=== PATIENT | male | born 1950 | race Caucasian/White ===

== ENCOUNTER → 2018-05-29 11:49 | Outpatient (BNVA) | payer MEDICARE, SELFPAY | PROVIDERS: Visit Provider Internal Medicine Interventional Cardiology | DX: I48.2 Chronic atrial fibrillation (principal); R06.02 Shortness of breath; R60.0 Localized edema; I73.9 Peripheral vascular disease, unspecified; I10 Essential (primary) hypertension | CPT/HCPCS: 99214 ==

== ENCOUNTER 2018-06-06 00:36 | Outpatient (CLI) | payer MEDICARE, SELFPAY ==
--- NOTE | 2018-06-06 10:35 | MERGE_ITS ---
*[facility]* *[facility]* [address] [place] [address] Date of study: 06/06/2018 Transthoracic Echocardiography M-mode, complete 2D, complete spectral Doppler, and color Doppler *STUDY CONCLUSIONS* Impressions: The patient was in atrial fibrillation throughout study. This rhythm can interfere with accurate global and segmental wall motion analysis. Summary: 1. Left ventricle: The cavity size was mildly dilated. Wall thickness was normal. Systolic function was at the lower limits of normal. The estimated ejection fraction was 50-55%. Wall motion was normal; there were no regional wall motion abnormalities. 2. Mitral valve: There was mild to moderate regurgitation. 3. Left atrium: The atrium was mildly dilated. 4. Right ventricle: The cavity size was normal. Wall thickness was normal. Systolic function was normal. 5. Right atrium: The atrium was dilated. 6. Pulmonary arteries: Pulmonary systolic pressure was increased, in the range of 30mm Hg to 40mm Hg. *PATIENT PRESENTATION* Height: 190.5cm ((75in) ) S/D Pressure: 134 / 88 Weight: 145.2kg ((319.3lb) ) BSA: 2.83m^2 Test start time: 10:40 AM. Test stop time: 11:40 AM. ORDERING Ruddy Delacruz MD REFERRING Ruddy Delacruz MD PERFORMING Unknown PERFORMING [facility] QUALITY PROJECT MANAGER RT Zenaida (R)(CT), KITTY *PROCEDURE DATA* Procedure information: The patient was identified by two identifiers. This study was interpreted by [facility]. Pertinent images and digital data are archived for permanent storage and are available for subsequent review. Comparison was made to the study of 12/15/2015. Study status: Routine. Transthoracic echocardiography. M-mode, complete 2D, complete spectral Doppler, and color Doppler. A Transthoracic Echocardiogram was performed. Scanning was performed from the parasternal, apical, subcostal, and suprasternal notch acoustic windows. Images were obtained using an [id number] cardiac ultrasound machine. Image quality was fair. Study completion: The patient tolerated the procedure well. There were no complications. History: PMH: Shortness of breath. *CARDIAC ANATOMY* Left ventricle: The cavity size was mildly dilated. Wall thickness was normal. Systolic function was at the lower limits of normal. The estimated ejection fraction was 50-55%. Wall motion was normal; there were no regional wall motion abnormalities. The study was not technically sufficient to allow evaluation of LV diastolic dysfunction due to atrial fibrillation. Aortic valve: Probably trileaflet; normal thickness leaflets. Mobility was not restricted. Doppler: Transvalvular velocity was within the normal range. There was no stenosis. There was no significant regurgitation. VTI ratio of LVOT to aortic valve: 0.69. Valve area (VTI): 2.5cm^2. Indexed valve area (VTI): 0.9cm^2/m^2. Peak velocity ratio of LVOT to aortic valve: 0.71. Valve area (Vmax): 2.6cm^2. Indexed valve area (Vmax): 0.9cm^2/m^2. Mean velocity ratio of LVOT to aortic valve: 0.68. Valve area (Vmean): 2.5cm^2. Indexed valve area (Vmean): 0.9cm^2/m^2. Mean gradient (S): 3.1mm Hg. Peak gradient (S): 4.8mm Hg. Aorta: Aortic root: The aortic root was normal in size. Ascending aorta: The ascending aorta was normal in size. Mitral valve: Structurally normal valve. Mobility was not restricted. Doppler: Transvalvular velocity was within the normal range. There was no evidence for stenosis. There was mild to moderate regurgitation. Valve area by pressure half-time: 7.2cm^2. Indexed valve area by pressure half-time: 2.5cm^2/m^2. Peak gradient (D): 4.5mm Hg. Left atrium: The atrium was mildly dilated. Right ventricle: The cavity size was normal. Wall thickness was normal. Systolic function was normal. Pulmonic valve: The pulmonary valve appears to be grossly normal. Doppler: Transvalvular velocity was within the normal range. There was no evidence for stenosis. There was no significant regurgitation. Tricuspid valve: Structurally normal valve. Doppler: Transvalvular velocity was within the normal range. There was no evidence for stenosis. There was mild regurgitation. Pulmonary artery: Pulmonary systolic pressure was increased, in the range of 30mm Hg to 40mm Hg. Right atrium: The atrium was dilated. Pericardium: There was no pericardial effusion. Systemic veins: Inferior vena cava: Well visualized. The vessel was patent and normal in size. The respirophasic diameter changes were in the normal range (greater than or equal to 50%). Baseline ECG: Atrial fibrillation. Measurements Left ventricle Value Reference LV ID, ED, PLAX 5.9 cm 3.5 - 6.0 LV ID, ES, PLAX (H) 4.7 cm 2.1 - 4.0 LV end-diastolic volume, 1-p A2C 97 ml LV ejection fraction, 1-p A2C 50 % LV end-diastolic volume, 1-p A4C 75 ml LV ejection fraction, 1-p A4C 46 % LV e', lateral 0.11 m/sec LV E/e', lateral 10 LV e', medial 0.067 m/sec LV E/e', medial 16 LV e', average 0.089 m/sec LV E/e', average 12 LVOT Value Reference LVOT ID, A-P 2.2 cm LVOT area 3.7 cm^2 LVOT peak velocity, S 0.78 m/sec LVOT mean velocity, S 0.58 m/sec LVOT VTI, S 13.1 cm LVOT peak gradient, S 2.4 mm Hg LVOT mean gradient, S 1.5 mm Hg Stroke volume (SV), LVOT DP 48 ml Stroke index (SV/bsa), LVOT DP 17 ml/m^2 Aortic valve Value Reference Aortic valve peak velocity, S 1.1 m/sec Aortic valve mean velocity, S 0.84 m/sec Aortic valve VTI, S 19.0 cm Aortic mean gradient, S 3.1 mm Hg Aortic peak gradient, S 4.8 mm Hg VTI ratio, LVOT/AV 0.69 Aortic valve area, VTI 2.5 cm^2 Velocity ratio, peak, LVOT/AV 0.71 Aortic valve area, peak velocity 2.6 cm^2 Velocity ratio, mean, LVOT/AV 0.68 Aortic valve area, mean velocity 2.5 cm^2 Aortic valve area/bsa, mean velocity 0.9 cm^2/m^2 Aorta Value Reference Aortic root ID, ED 3.6 cm Ascending aorta ID, A-P, S 2.8 cm Left atrium Value Reference LA ID, A-P, ES 5.7 cm LA ID/bsa, A-P 2.0 cm/m^2 <=2.2 LA area, ES, A4C (H) 30.6 cm^2 8.8 - 23.4 LA area, ES, A2C 29 cm^2 LA volume/bsa, ES, 1-p A4C 37 ml/m^2 LA volume, ES, 2-p 96 ml LA volume/bsa, ES, 2-p 34 ml/m^2 LA/aortic root ratio 1.58 Mitral valve Value Reference Mitral E-wave peak velocity 1.06 m/sec Mitral deceleration time (L) 106 ms 150 - 230 Mitral pressure half-time 31 ms Mitral peak gradient, D 4.5 mm Hg Mitral valve area, PHT, DP 7.2 cm^2 Tricuspid valve Value Reference Tricuspid regurg peak velocity 3 m/sec Tricuspid peak RV-RA gradient 35.2 mm Hg Right atrium Value Reference RA area, ES, A4C (H) 30.3 cm^2 8.3 - 19.5 Legend: (L) and (H) vickie values outside specified reference range. I have personally reviewed the images and have reviewed and edited the reported findings. Electronically signed by Vimal Wood 06/06/2018 17:41
--- NOTE | 2018-06-06 11:52 | DI.RAD_ITS ---
SYMPTOM/DIAGNOSIS: SOB, R06.02 PA AND LATERAL CHEST: Comparison is made with 12/18/13. The heart is again noted to be enlarged. There is apparent increased density posteriorly in the right lower lobe medially which could represent atelectasis versus consolidation. No effusions are seen. The left lung appears clear. Prominent degenerative changes are again noted in the spine. IMPRESSION: Right lower lobe atelectasis versus consolidation.
[2018-06-06 12:40] LABS: HCT 49.4 % (40.0-50.0); HGB 16.3 g/dL (13.5-17.5); Mean Corpuscular Hemoglobin 31.2 pg (27.0-33.0); Mean Corpuscular Volume 94.6 fL (80-95); Mean Platelet Volume 10.2 fL (8.0-11.0); Platelet Count 228 x1000/uL (130-400); RBC 5.22 m/cumm (4.50-6.00); RBC Distribution Width 14.1 % (11.8-14.1); White Blood Cell Count 7.47 k/cumm (4.4-10.8)
[2018-06-06 14:11] LABS: Anion Gap 7.6 mmol/L (3-11); BUN 14 mg/dL (7-18); CO2 30.4 mmol/L (21.0-32.0); CREATININE 0.99 mg/dL (0.70-1.30); Chloride 102 mmol/L (98-107); NT-proBNP 439 pg/mL; Potassium 5.2 mmol/L (3.5-5.1); Sodium 140 mmol/L (136-145); TSH 3.39 uIU/mL (0.358-3.74); Troponin I < 0.02 ng/mL (0.00-0.06)
== END 2018-06-06 00:56 ==
PROVIDERS: PCP Nurse Practitioner Family; Visit Provider Internal Medicine Interventional Cardiology
DX: R06.2 Wheezing (principal); I51.7 Cardiomegaly; I48.91 Unspecified atrial fibrillation; I34.0 Nonrheumatic mitral (valve) insufficiency; J98.4 Other disorders of lung; I10 Essential (primary) hypertension
CPT/HCPCS: 36415; 80051; 84520; 85027; 93306; 71046; 82565; 83880; 84443; 84484

== ENCOUNTER 2018-06-12 02:16 | Outpatient (CLI) | payer MEDICARE, SELFPAY ==
[2018-06-12] MEDS: Inhaler, Assist Device 1 EACH MC (09:12)
[2018-06-12] MEDS: Albuterol HFA 18 GM 200 PUFF INH IH (09:12)
--- NOTE | 2018-06-12 09:32 | PFT_ITS ---
PULMONARY FUNCTION TEST REPORT Patient identification - [facility] DATE OF - 1950 DATE OF SERVICE - 06/12/2018 REQUESTING PROVIDER - Ruddy Delacruz M.D. INTERPRETATION OF STUDY Spirometry shows mild obstructive airways disease with significant bronchodilator response. LUNG VOLUMES - Lung volumes show no evidence of restriction. DIFFUSION CAPACITY- Normal. AIRWAY RESISTANCE - Elevated. IMPRESSION Mild obstructive airways disease with significant bronchodilator response, clinical correlation recommended. Sherley Scott M.D. FRANCIE/ceasar T - 06/19/2018
== END 2018-06-12 02:36 ==
PROVIDERS: PCP Nurse Practitioner Family; Visit Provider Internal Medicine Interventional Cardiology
DX: R06.02 Shortness of breath (principal); Z87.891 Personal history of nicotine dependence
CPT/HCPCS: 94060; 94150; 94726; 94729

== ENCOUNTER 2018-07-03 10:22 | Outpatient (CLI) | payer MEDICARE, SELFPAY | END 2018-07-03 10:42 | PROVIDERS: PCP Nurse Practitioner Family; Visit Provider Internal Medicine Interventional Cardiology | DX: R06.02 Shortness of breath (principal); R07.9 Chest pain, unspecified; I48.91 Unspecified atrial fibrillation; I73.9 Peripheral vascular disease, unspecified; I10 Essential (primary) hypertension | CPT/HCPCS: 99214; 93005; 93010 ==

== ENCOUNTER 2018-08-18 00:28 | Outpatient (CLI) | payer MEDICARE, SELFPAY ==
--- NOTE | 2018-08-18 06:48 | MERGEMPI_ITS ---
*[facility]* *[facility]* [address] [place] [address] Myocardial Perfusion Imaging - SPECT Regadenoson Date of study: 08/18/2018 *PATIENT PRESENTATION* Height: 185.4cm (73in) Blood Pressure: Weight: 145.5kg (320lb) BSA: 2.8m^2 Referring physician: Latonya Burdick Ordering physician: Ruddy Delacruz MD Impressions: - Normal perfusion by Tc99m Sestamibi Imaging. - Abnormal contraction consistent with cardiomyopathy. Summary: 1. Myocardial perfusion imaging: No myocardial perfusion defects noted. 2. The calculated left ventricular ejection fraction after stress: 35%. LV global systolic function is moderately reduced. Diffuse left ventricular regional motion abnormalities. Indication: I42.9. History: REASON FOR TESTING: ATRIAL FIBRILLATION. CARDIOMYOPATHY. PT REPORTS INTERMITTENT SHORTNESS OF BREATH AND CHEST PAINS. PT DENIES CHEST PAIN AT THIS TIME. LUNG SOUNDS AT THIS TIME WITH WHEEZING AUDIBLE. HEART RATE AT THIS TIME IRREGULARLY IRREGULAR. AND TACHYCARDIC. PT REPORTS HE IS NOT COMFORTABLE WITH WALKING ON THE TREADMILL. LEXISCAN PERFORMED PER PT'S REQUEST. Risk factors: Current tobacco use. Hypertension. Dyslipidemia. Cholesterol: 121mg/dl. HDL: 46mg/dl. LDL: 49mg/dl. Triglycerides: 87mg/dl. Peripheral vascular disease. ALLERGIES: PENICILLIN. MEDICATIONS: AMLODIPINE 5 MG DAILY, APIXABAN 5 MG BID, METOPROLOL SUCCINAATE 200 MG DAILY, METOPROLOL TARTRATE 50 MG DAILY, ROSUVASTATIN 40 MG DAILY. Imaging Technique: Protocol: Regadenoson. Acquisition: Gated SPECT; 1 day - rest/stress. The patient was imaged in the supine position. Attenuation correction used. Isotope administration: - Rest. Tc[99m]-sestamibi. Injection to stress time: 00:45. - Stress. Tc[99m]-sestamibi. 1-2 min before end of exercise Stress protocol: +--------+---+ + + !Stage !HR !BP (mmHg) !Comments ! +--------+---+ + + !Baseline!125!134/80 (98) ! ! +--------+---+ + + !1 min !129!140/86 (104)!Inject Regadenoson.! +--------+---+ + + !4 min !136!144/84 (104)! ! +--------+---+ + + !6 min !143!146/86 (106)! ! +--------+---+ + + * Stress results: The rate-pressure product for the peak heart rate and blood pressure was [id number] Hg/min. Stress ECG: STRESS TEST ENDED IN 7 MINUTES & 15 SECONDS. PT EXPERIENCED NO SIGNIFICANT SIDE EFFECTS FROM LEXISCAN. ATRIAL FIBRILLATION AT BASELINE AND THROUGHOUT TESTING WITH RAPID HEART RATES FROM 125 TO 143 BPM. NORMAL HEART RATE RESPONSE TO LEXISCAN INJECTION. NO ECTOPY. NO ANGINA. NO SIGNIFICANT ST SEGMENT CHANGES. Myocardial perfusion: Imaging information: gated. Left ventricular size is normal. No myocardial perfusion defects noted. Ventricular Function (Wall Motion): The calculated left ventricular ejection fraction after stress: 35%. LV global systolic function is moderately reduced. Diffuse left ventricular regional motion abnormalities. Study data: Latonya Burdick MD supervised and was readily available during the procedure. This study was interpreted by [facility]. Study status: Routine. Consent: The risks, benefits, and alternatives to the procedure were explained to the patient and informed consent was obtained. Procedure: Initial setup. A baseline ECG was recorded. Surface ECG leads and manual cuff blood pressure measurements were monitored. Heart sounds: Normal. Lung sounds: Abnormal. Regadenoson stress test. Stress testing was performed, with regadenoson by intravenous bolus, for a total dose of 0.4mgover 10.00sec, followed by a 5ml saline flush. The infusion was terminated due to per protocol. Study completion: All catheters inserted during the procedure were removed. The patient tolerated the procedure well and was discharged from the lab. Discharge: The patient left the laboratory in stable condition. Birthdate: Patient birthdate: 1950. Sex: Gender: male. Study date: Study date: 08/18/2018. Study time: 06:48 AM. Signature Documentation: - The imaging portion of this study was interpreted by Nuclear Key Person Latonya Burdick MD. - The imaging portion of this study was interpreted by Nuclear Radiologist Ferny Mehta MD. - The Stress ECG portion of this study was interpreted by Latonya Burdick MD. Electronically signed by Latonya Burdick 08/18/2018 15:21
[2018-08-18] MEDS: Regadenoson 0.4 MG/5 ML SYR IVP (13:59)
== END 2018-08-18 00:48 ==
PROVIDERS: PCP Nurse Practitioner Family; Visit Provider Internal Medicine Interventional Cardiology
DX: I42.9 Cardiomyopathy, unspecified (principal); I48.91 Unspecified atrial fibrillation; R07.9 Chest pain, unspecified; R06.02 Shortness of breath; R00.0 Tachycardia, unspecified; I10 Essential (primary) hypertension; E78.5 Hyperlipidemia, unspecified; F17.200 Nicotine dependence, unspecified, uncomplicated
CPT/HCPCS: 78452; 93016; 93018; 93017; J2785

== ENCOUNTER 2018-08-21 10:30 | Outpatient (CLI) | payer MEDICARE, SELFPAY | END 2018-08-21 10:50 | PROVIDERS: PCP Nurse Practitioner Family; Visit Provider Internal Medicine Interventional Cardiology | DX: R06.02 Shortness of breath (principal); R07.9 Chest pain, unspecified; I48.2 Chronic atrial fibrillation; I73.9 Peripheral vascular disease, unspecified; I10 Essential (primary) hypertension | CPT/HCPCS: 99214 ==

== ENCOUNTER 2018-08-28 01:28 | Outpatient (CLI) | payer MEDICARE, SELFPAY ==
--- NOTE | 2018-08-28 08:55 | MERGE_ITS ---
*[facility]* *[facility]* [address] [place] [address] Date of study: 08/28/2018 Transthoracic Echocardiography M-mode, complete 2D, complete spectral Doppler, and color Doppler *STUDY CONCLUSIONS* Summary: 1. Left ventricle: Wall thickness was increased in a pattern of moderate LVH. Systolic function was mildly reduced. The estimated ejection fraction was 45-50%. The study is not technically sufficient to allow evaluation of LV diastolic function. 2. Mitral valve: There was moderate regurgitation. 3. Left atrium: The atrium was moderately dilated. 4. Right ventricle: The cavity size was normal. Wall thickness was normal. Systolic function was normal. 5. Right atrium: The atrium was moderately dilated. 6. Atrial septum: No defect or patent foramen ovale was identified. 7. Tricuspid valve: There was mild-moderate regurgitation. 8. Pulmonary arteries: Pulmonary systolic pressure was in the range of 40mm Hg to 50mm Hg. 9. Inferior vena cava: The vessel was patent and normal in size. The respirophasic diameter changes were in the normal range (greater than or equal to 50%), consistent with normal central venous pressure. *PATIENT PRESENTATION* Height: 185.4cm ((73in) ) S/D Pressure: 119 / 83 Weight: 145.2kg ((319.3lb) ) BSA: 2.8m^2 Test start time: 09:10 AM. Test stop time: 10:00 AM. ORDERING Ruddy Delacruz MD REFERRING Ruddy Delacruz MD PERFORMING [facility] CARBON GRINDER Melanie Fenton, RT (R)(CT), RDCS CONSULTING Lydia Selby Joh *PROCEDURE DATA* Procedure information: The patient was identified by two identifiers. This study was interpreted by [facility]. Pertinent images and digital data are archived for permanent storage and are available for subsequent review. Comparison was made to the study of 12/15/2015. Study status: Routine. Transthoracic echocardiography. M-mode, complete 2D, complete spectral Doppler, and color Doppler. A Transthoracic Echocardiogram was performed. Scanning was performed from the parasternal, apical, subcostal, and suprasternal notch acoustic windows. Images were obtained using an [id number] cardiac ultrasound machine. Image quality was adequate. Study completion: The patient tolerated the procedure well. History: PMH: Shortness of breath. *CARDIAC ANATOMY* Left ventricle: Wall thickness was increased in a pattern of moderate LVH. Systolic function was mildly reduced. The estimated ejection fraction was 45-50%. The study is not technically sufficient to allow evaluation of LV diastolic function. Aortic valve: Mildly thickened, mildly calcified leaflets. Doppler: There was no stenosis. There was no regurgitation. VTI ratio of LVOT to aortic valve: 0.91. Valve area (VTI): 3cm^2. Indexed valve area (VTI): 1.1cm^2/m^2. Peak velocity ratio of LVOT to aortic valve: 0.77. Valve area (Vmax): 2.6cm^2. Indexed valve area (Vmax): 0.9cm^2/m^2. Mean velocity ratio of LVOT to aortic valve: 0.77. Valve area (Vmean): 2.6cm^2. Indexed valve area (Vmean): 0.9cm^2/m^2. Mean gradient (S): 2.4mm Hg. Peak gradient (S): 4mm Hg. Aorta: Aortic root: The aortic root was normal in size. Ascending aorta: The ascending aorta was mildly dilated. Mitral valve: Doppler: There was no evidence for stenosis. There was moderate regurgitation. Valve area by pressure half-time: 5.6cm^2. Indexed valve area by pressure half-time: 2cm^2/m^2. Peak gradient (D): 6.1mm Hg. Left atrium: The atrium was moderately dilated. Atrial septum: No defect or patent foramen ovale was identified. Right ventricle: The cavity size was normal. Wall thickness was normal. Systolic function was normal. Pulmonic valve: Doppler: There was no evidence for stenosis. There was no significant regurgitation. Tricuspid valve: Doppler: There was mild-moderate regurgitation. Pulmonary artery: Poorly visualized. Pulmonary systolic pressure was in the range of 40mm Hg to 50mm Hg. Right atrium: The atrium was moderately dilated. Pericardium: There was no pericardial effusion. Systemic veins: Inferior vena cava: Well visualized. The vessel was patent and normal in size. The respirophasic diameter changes were in the normal range (greater than or equal to 50%), consistent with normal central venous pressure. Baseline ECG: Atrial fibrillation. Measurements Left ventricle Value 06/06/2018 Reference LV ID, ED, PLAX 5.2 cm 5.9 3.5 - 6.0 LV ID, ES, PLAX (H) 4.3 cm 4.7 2.1 - 4.0 LV end-diastolic volume, 97 ml 97 1-p A2C LV ejection fraction, 1-p 42 % 50 A2C LV end-diastolic volume, 80 ml 75 1-p A4C LV ejection fraction, 1-p 41 % 46 A4C LV e', lateral 0.114 m/sec 0.11 LV E/e', lateral 11 10 Ventricular septum Value 06/06/2018 Reference IVS thickness, ED, PLAX 1.4 cm LVOT Value 06/06/2018 Reference LVOT ID, A-P 2.1 cm 2.2 LVOT area 3.3 cm^2 3.7 LVOT peak velocity, S 0.77 m/sec 0.78 LVOT mean velocity, S 0.57 m/sec 0.58 LVOT VTI, S 12.7 cm 13.1 LVOT peak gradient, S 2.4 mm Hg 2.4 LVOT mean gradient, S 1.4 mm Hg 1.5 Stroke volume (SV), LVOT 42 ml 48 DP Stroke index (SV/bsa), 15 ml/m^2 17 LVOT DP Aortic valve Value 06/06/2018 Reference Aortic valve peak 1 m/sec 1.1 velocity, S Aortic valve mean 0.74 m/sec 0.84 velocity, S Aortic valve VTI, S 14.0 cm 19.0 Aortic mean gradient, S 2.4 mm Hg 3.1 Aortic peak gradient, S 4 mm Hg 4.8 VTI ratio, LVOT/AV 0.91 0.69 Aortic valve area, VTI 3 cm^2 2.5 Velocity ratio, peak, 0.77 0.71 LVOT/AV Aortic valve area, peak 2.6 cm^2 2.6 velocity Velocity ratio, mean, 0.77 0.68 LVOT/AV Aortic valve area, mean 2.6 cm^2 2.5 velocity Aortic valve area/bsa, 0.9 cm^2/m^2 0.9 mean velocity Aorta Value 06/06/2018 Reference Aortic root ID, ED 3.7 cm 3.6 Left atrium Value 06/06/2018 Reference LA ID, A-P, ES 5.5 cm 5.7 LA ID/bsa, A-P 2.0 cm/m^2 2.0 <=2.2 LA area, ES, A4C (H) 28.4 cm^2 30.6 8.8 - 23.4 LA area, ES, A2C 22 cm^2 29 LA volume/bsa, ES, 1-p A4C 45 ml/m^2 37 LA volume, ES, 2-p 87 ml 96 LA volume/bsa, ES, 2-p 31 ml/m^2 34 LA/aortic root ratio 1.51 1.58 Mitral valve Value 06/06/2018 Reference Mitral E-wave peak 1.23 m/sec 1.06 velocity Mitral deceleration time (L) 135 ms 106 150 - 230 Mitral pressure half-time 39 ms 31 Mitral peak gradient, D 6.1 mm Hg 4.5 Mitral valve area, PHT, DP 5.6 cm^2 7.2 Tricuspid valve Value 06/06/2018 Reference Tricuspid regurg peak 2.9 m/sec 3 velocity Tricuspid peak RV-RA 33.2 mm Hg 35.2 gradient Right atrium Value 06/06/2018 Reference RA area, ES, A4C (H) 28.5 cm^2 30.3 8.3 - 19.5 Legend: (L) and (H) vickie values outside specified reference range. I have personally reviewed the images and have reviewed and edited the reported findings. Electronically signed by Ruddy Delacruz MD 08/28/2018 17:53
== END 2018-08-28 01:48 ==
PROVIDERS: PCP Nurse Practitioner Family; Visit Provider Internal Medicine Interventional Cardiology
DX: R06.02 Shortness of breath (principal); I08.1 Rheumatic disorders of both mitral and tricuspid valves; I51.7 Cardiomegaly; I10 Essential (primary) hypertension; R07.9 Chest pain, unspecified; I48.91 Unspecified atrial fibrillation; I73.9 Peripheral vascular disease, unspecified
CPT/HCPCS: 93306; 99214

== ENCOUNTER 2018-10-17 22:21 | Inpatient (IN) | payer MEDICARE, SELFPAY ==
[2018-10-17] VITALS (33 sets, daily range): BP systolic 93–141; BP diastolic 55–129; PULSE 109–167; RESP 17–44; TEMP 38.1; O2SAT 89–96
--- NOTE | 2018-10-17 22:32 | W.ED.GENAD ---
Discharge Plan Disposition Patient Disposition: [facility] INPATIENT Condition: Serious Discharge Details Chief Complaint: GenMedical Clinical Impression: Atrial fibrillation with RVR, Sepsis Reason For Visit: JORGE Primary Care Provider: Susie Dickinson ED Provider: Ruddy Pedersen Home Meds and New Rx's Prescriptions: No Action torsemide 20 mg tablet 20 mg PO DAILY RF: 0 lisinopril 5 mg tablet 5 mg PO DAILY RF: 0 rosuvastatin [Crestor] 40 mg tablet 40 mg PO DAILY Qty: 90 RF: 4 Eliquis 5 MG tablet 5 mg PO BID Qty: 180 RF: 4 Metoprolol Succinate 200 MG TAB.ER.24H 200 mg PO DAILY Qty: 90 RF: 4 digoxin 250 mcg Tablet 0.25 mg PO DAILY RF: 0 Medical Decision Making 68 yo male with hx of afib, unexplained cardiomyopathy but cardiology feels likely tachycardia related, htn, hld, former smoker, who comes in with onset of chills, subjective fevers and cough starting tonight. He had a temp of 101 with ems and hr's in the 140-160's. On arrival here he is speaking clearly with diminished breath sounds at the bases, in afib with rates 140-160. He has no abdominal tenderness, denies severe headaches or neck stiffness. Has stage I sacral decubitus ulcer. Has a temp to 38 here, given cough and breath sounds suspect either pna or influenza. Will obtain lab work and chest xray, and given his hx of chf I gave 500cc of IV fluids and his oxygen saturation decreased from 97 to about 92 so I stopped fluids and initiated diltiazem infusion. He does have a scrotal rash that is not severely tender, does hav satellite lesions so could be fungal, do not suspect stoney's at this time. Also has a 3x4cm area of erythema of the left posterior calf that is mildly warm to touch without severe pain, unlikely nec fasc but could be source of his fever, will cover for mrsa with vanco xray on my read shows right lower lobe pna, lactate 2, rest of labs still pending, will cover for CAP as pt and confirm he has no recent hospitalizations in past 3 months. chemistries show elevation in lfts, has absolutely no abdominal tendereness on my abdominal exam so doubt acute cholecystitis, flu swab negative. Discussed the case with Dr. Herrera who accepts for admission to the ICU for further care and monitoring Differential Diagnosis pna, influenza, chf, Medical Records Medical records reviewed: Yes I reviewed the patient's medical records. Imaging Data Radiologic Study: Attestation: I personally reviewed and interpreted this imaging study as follows: Imaging: X-Ray Radiologist's impression: IMPRESSION: Right lower lobe is atelectatic. Given the patient's history of a fever superimposed pneumonia a consideration Lab Data Lab results reviewed: Yes I reviewed the patient's lab results. ECG Data Attestation: I personally reviewed and interpreted this ECG (s) as follows: Prior ECG tracings: not available for review Interpretation: atrial fibrillation, rate 160, qtc 414, st depressions and neg t wave in lateral leads HPI General Mode of arrival: EMS. Date/Time Provider Initiated Documentation: 10/17/18 22:30. Limitations to Documentation: no limitations. Information obtained by: patient. History of Present Illness 68 year old M presents to the emergency department with the chief complaint of fever, described as moderate, with intensity rated at 6. Patient reports no radiation. Patient started experiencing this hour(s) (5) and it has been constant. No relieving factors improve symptom(s), No exacerbating factors reported . Patient notes cough. Patient did receive the following treatments prior to arrival, none Related Data Home Medications Medication Instructions Recorded Confirmed apixaban [Eliquis] 5 mg PO BID #180 tab-cap 03/30/18 10/17/18 rosuvastatin 40 mg tablet 40 mg PO DAILY #90 tab 07/04/18 10/17/18 lisinopril 5 mg tablet 5 mg PO DAILY 08/28/18 10/17/18 torsemide 20 mg tablet 20 mg PO DAILY 08/28/18 10/17/18 digoxin 0.25 mg PO DAILY 10/17/18 10/17/18 Previous Rx's Medication Instructions Recorded apixaban [Eliquis] 5 mg PO BID #180 tab-cap 03/30/18 rosuvastatin 40 mg tablet 40 mg PO DAILY #90 tab 07/04/18 Allergies Allergy/AdvReac Type Severity Reaction Status Date / Time Penicillins Allergy Severe Hives Unverified 08/21/18 11:31 Review of Systems Review of Systems All systems reviewed & are unremarkable except as noted in HPI and below Constitutional Denies fever(s) ENT Denies change in voice Cardiovascular Denies chest pain Gastrointestinal Denies abdominal pain, Denies nausea and Denies vomiting Genitourinary Denies dysuria Musculoskeletal Denies joint swelling Psychiatric Denies depression [facility] Social History Smoking and Tabacco status: Former Tobacco Use Exam Const General: ill appearing Orientation: alert HENMT Head: normal to inspection Ears: external ears normal General nose exam: external nose normal Mouth: moist mucous membranes Eyes General: appearance normal, both eyes and all related structures Neck Neck: normal visual inspection Resp Auscultation: other (diminished breath sounds at the bases bilaterally) Cardio Rate: tachycardic Rhythm: abnormal rhythm Skin General skin exam: no rashes or lesions noted Neuro General: alert and oriented x3 Extrem General: normal to inspection Psych Mental Status: mental status grossly normal Course Lab/Test Results Lab/Test Results: 10/17/18 22:19 Blood Blood Culture - Pending 10/17/18 22:19 Blood Blood Culture - Pending Critical Care Time Critical Care Time: Yes Total Critical Care Time: 90 Attestation: time spent initiating maurisio blockers, frequent reassessments, lab and ecg review in patient with afib with rvr and potential to deteriorate at any time
[2018-10-17 22:51] LABS: HGB 14.1 g/dL (13.5-17.5); Mean Corp. HGB Concentration 32.8 g/dL (32.0-36.0); Mean Corpuscular Hemoglobin 28.8 pg (27.0-33.0); Mean Corpuscular Volume 87.8 fL (80-95); Mean Platelet Volume 9.2 fL (8.0-11.0); Platelet Count 280 x1000/uL (130-400); RBC Distribution Width 15.6 % (11.8-14.1); White Blood Cell Count 8.32 k/cumm (4.4-10.8)
[2018-10-17 23:03] LABS: Absolute Eosinophil Count 0.08 k/cumm (0.0-0.7); Absolute Lymphocyte Count 1.33 k/cumm (1.2-3.4); Absolute Monocyte Count 0.33 k/cumm (0.11-0.7); Absolute Neutrophil Count 6.57 k/cumm (1.2-6.7); Atypical Lymphocytes % 6; Diff Comment Manual Differential
[2018-10-17 23:04] LABS: Polychromasia Present
--- NOTE | 2018-10-17 23:05 | DI.RAD_ITS ---
SYMPTOM/DIAGNOSIS: FEVER PORTABLE AP CHEST: Comparison is made with 06/06/18. There is now opacification involving the lower half of the right lung. Atelectasis, pneumonia or effusion should be considered. The left lung is clear. Cardiac silhouette appears stable. Pulmonary vasculature is within normal limits. The bones are intact. IMPRESSION: Large right lower lobe opacity. Differential considerations include atelectasis, pneumonia or effusion.
[2018-10-17 23:12] LABS: INR 1.2 (0.9-1.1); PTT Activated 28.3 sec (21.0-31.4); Prothrombin Time 11.7 sec (9.3-11.0)
[2018-10-17 23:15] LABS: ALT 87 U/L (12-78); AST 144 U/L (15-37); Alkaline Phosphatase 587 U/L (46-116); Anion Gap 8.3 mmol/L (3-11); BUN 28 mg/dL (7-18); Bilirubin, Total 0.5 mg/dL (0.2-1.0); CO2 30.7 mmol/L (21.0-32.0); CREATININE 1.16 mg/dL (0.70-1.30); Calcium 8.8 mg/dL (8.5-10.1); Chloride 100 mmol/L (98-107); Glucose 113 mg/dL (70-100); Magnesium 1.8 mg/dL (1.8-2.4); Potassium 3.8 mmol/L (3.5-5.1); Sodium 139 mmol/L (136-145); Total Protein 6.4 g/dL (6.4-8.2); Troponin I 0.02 ng/mL (0.00-0.06)
--- NOTE | 2018-10-17 23:17 | DI.VRAD_ITS ---
EXAM: XR Chest, 1 View EXAM DATE/TIME: 10/17/2018 10:35 PM CLINICAL HISTORY: 68 years old, male; Signs and symptoms; Fever; Patient HX: Fever, chf, hypertension TECHNIQUE: XR of the chest, 1 view. COMPARISON: CR XR CHEST 2V PA LATERAL 06/06/2018 11:41 AM FINDINGS: Lungs: Large right lung base opacity. There is volume loss. Pleural space: Unremarkable. No evidence of pneumothorax. Heart/Mediastinum: Unremarkable. Heart size within normal limits for technique. Bones/joints: Unremarkable. IMPRESSION: Right lower lobe is atelectatic. Given the patient's history of a fever superimposed pneumonia a consideration. Dictated and Authenticated by: Norman Brooks MD. Ordering:NEO Fox MD
[2018-10-17] MEDS: AZITHROMYCIN 500 MG in Normal Saline 250 ML 250 MG IVPB (23:52)
[2018-10-18] VITALS (123 sets, daily range): BP systolic 56–115; BP diastolic 40–99; PULSE 76–163; RESP 17–40; TEMP 35.8–37.1; O2SAT 90–98
[2018-10-18] MEDS: Metoprolol 5 MG/5 ML VIAL IVP (00:10)
--- NOTE | 2018-10-18 00:16 | HPE_ITS ---
Date of service: 10/18/18 Time of Service: 00:15 Assessment and Plan (1) Fever: Current visit: Yes Status: Acute Fever. I am not convinced there is a respiratory source. There are several possible skin sources. Would also like to see a urinalysis I note the modest elevations in liver enzymes, unclear how this may relate, could be incidental finding, perhaps related to alcohol. Certainly patient is having no abdominal symptoms and his exam is entirely benign so I do not think this is source I think empiric treatment with vancomycin and Rocephin would be a good option pending culture results or further clinical developments As to the rapid atrial fibrillation will add additional beta riccardo and/or digoxin as needed History of Present Illness Chief Complaint: fever, SOB Past medical history Narrative: Patient is a 68-year-old with multiple medical problems, including congestive heart failure and atrial fibrillation. He comes in with 8 weeks of shortness of and 1 day of fever he denies cough or cold symptoms, abdominal pain, diarrhea or urinary symptoms he does note he has had a painful rash on his tailbone and he had some bleeding from a rash in his scrotum in the emergency room initial evaluation of note for a rapid atrial fibrillation for which patient was given 50 mg bolus of Cardizem and started on 15 mg/h drip. Chest x-ray could not exclude pneumonia and patient was given dose of Rocephin and Zithromax. He was admitted for further evaluation Past medical history congestive heart failure, atrial fibrillation, hypertension, hyperlipidemia, peripheral vascular disease, sleep apnea, alcohol use, Allergies PCN Medications Eliquis 5 twice daily digoxin 0.25 daily lisinopril 5 daily Lopressor 200 daily Crestor 40 daily torsemide 20 daily Physical exam temp 38.1 pulse initially 160 at present approximately 130 blood pressure 118/91 respirations 30 O2 sat 94% on room air HEENT unremarkable neck is supple lung diminished breath sounds but clear. Heart is tachycardic and irregularly irregular abdomen is soft nontender exam shows scrotal erythema extending to the inguinal crease bilaterally. There is no edema, tenderness or fluctuance. remainder of the skin exam shows pinkish erythema of the left calf and grade 2 ulceration and erythema overlying the coccyx Laboratory White count is 8.3 hematocrit 43 platelet 280 sodium 139 potassium 3.8 chloride 100 bicarb 30 BUN 28 creatinine 1.1 glucose 113 lactate 2.0 AST 144 ALT 87 alk phos 587 troponin 0 0.02 chest x-ray shows atelectasis right lower lobe no infiltrate evident Review of Systems Review of Systems All systems reviewed & are unremarkable except as noted in HPI and below PFSH Social History Smoking and Tabacco status: Former Tobacco Use Meds Home Medications Medication Instructions Recorded Confirmed Type Metoprolol Succinate 200 mg PO DAILY #90 tab-cap 03/30/18 10/17/18 Clinic apixaban [Eliquis] 5 mg PO BID #180 tab-cap 03/30/18 10/17/18 Rx rosuvastatin 40 mg tablet 40 mg PO DAILY #90 tab 07/04/18 10/17/18 Rx lisinopril 5 mg tablet 5 mg PO DAILY 08/28/18 10/17/18 History torsemide 20 mg tablet 20 mg PO DAILY 08/28/18 10/17/18 History digoxin 0.25 mg PO DAILY 10/17/18 10/17/18 History Allergies Allergy/AdvReac Type Severity Reaction Status Date / Time Penicillins Allergy Severe Hives Unverified 08/21/18 11:31 Exam Narrative Exam Narrative: per HPI Results Labs : 10/17/18 22:40 10/17/18 22:40 Laboratory Results - last 24 hr 10/17/18 10/17/18 10/17/18 22:40 22:40 22:40 WBC 8.32 RBC 4.90 Hgb 14.1 Hct 43.0 MCV 87.8 MCH 28.8 MCHC 32.8 RDW 15.6 H Plt Count 280 MPV 9.2 Immature Gran % 0.0 Neutrophils % 76.0 Band Neutrophils % 3.0 Lymphocytes % 10.0 Atypical Lymphs % 6 Monocytes % 4.0 Eosinophils % 1.0 Basophils % 0.0 Absolute Neutrophils 6.57 Absolute Lymphocytes 1.33 Absolute Monocytes 0.33 Absolute Eosinophils 0.08 Absolute Basophils 0.00 Differential Comment Manual differential RBC Morphology See below Polychromasia Present PT INR APTT Sodium 139 Potassium 3.8 Chloride 100 Carbon Dioxide 30.7 Anion Gap 8.3 BUN 28 H Creatinine 1.16 Estimated GFR/1.73 m2 >= 60.00 Glucose 113 H Lactate 2.0 H Calcium 8.8 Magnesium 1.8 Total Bilirubin 0.5 AST 144 H ALT 87 H Alkaline Phosphatase 587 H Troponin I 0.02 Total Protein 6.4 Albumin 2.0 L 10/17/18 22:40 WBC RBC Hgb Hct MCV MCH MCHC RDW Plt Count MPV Immature Gran % Neutrophils % Band Neutrophils % Lymphocytes % Atypical Lymphs % Monocytes % Eosinophils % Basophils % Absolute Neutrophils Absolute Lymphocytes Absolute Monocytes Absolute Eosinophils Absolute Basophils Differential Comment RBC Morphology Polychromasia PT 11.7 H INR 1.2 H APTT 28.3 Sodium Potassium Chloride Carbon Dioxide Anion Gap BUN Creatinine Estimated GFR/1.73 m2 Glucose Lactate Calcium Magnesium Total Bilirubin AST ALT Alkaline Phosphatase Troponin I Total Protein Albumin Last Vital Signs Temp 38.1 C H 10/17/18 22:18 Pulse 160 H 10/17/18 23:01 Resp 30 H 10/17/18 23:54 BP 118/91 H 10/17/18 23:01 Pulse Ox 94 L 10/17/18 22:18
[2018-10-18] MEDS: Metoprolol 5 MG/5 ML VIAL (00:18)
[2018-10-18] MEDS: oxyCODONE 5 MG TAB PO ×2 (01:04→11:33)
[2018-10-18] MEDS: Metoprolol 25 MG TAB PO (01:04)
[2018-10-18] MEDS: VANCOMYCIN 2,000 MG in Normal Saline 500 ML 250 MG IVPB (01:04)
[2018-10-18 03:26] LABS: Bilirubin Negative (Negative); Blood Small (Negative); Clarity Clear; Glucose Negative (Negative); Ketones Trace mg/dL (Negative); Leukocyte Esterase Negative (Negative); Nitrite Negative (Negative); Specific Gravity 1.025 (1.005-1.025); pH 5.5 (5-8)
[2018-10-18 03:46] LABS: Bacteria Few HPF (Negative); Epithelial Cells Moderate HPF (Negative); RBC 0-2 (0-2); WBC 0-2 HPF (0-5)
[2018-10-18 03:48] LABS: C & S Indicated? No; Casts 5-10 Hyaline LPF (Negative); Crystals Negative HPF (Negative); Mucus Negative (Negative)
[2018-10-18 07:26] LABS: ALT 72 U/L (12-78); AST 116 U/L (15-37); Alkaline Phosphatase 479 U/L (46-116)
--- NOTE | 2018-10-18 08:13 | PDOC.CMIN ---
- If Service Date Differs Date of service: 10/18/18 Time of Service: 08:13 Care Management Initial Assess REASON FOR HOSPITALIZATION:: Fever, Afib PAST MEDICAL HISTORY/PAST SURGICAL HISTORY:: Cardiomyopathy, CHF PREVIOUS FUNCTIONAL STATUS/SOCIAL/FAMILY SUPPORTS:: Flash lives at home with his spouse Geraldine. They have three grown children that live in [place]. 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 Him and his live in [place], [place]. Darin reports he was independent, and driving until about two months ago. He states he became too weak to walk, drive or care for himself which has progresivley become worse. CURRENT FUNCTIONAL STATUS:: Darin is uncomfortable during CM visit. He states he is having pain in his right shoulder and shoulder blade. Darin moves constant while CM completing assessment. He wants to know what is happening to him and his diagnosis. He states that ?once I know what is wrong with me I can treat it or be done with it?. Darin?s speech is thick and he appears to have some aphasia during assessment. CM reviewed resources in the community including choices for care, home health, and hospice. Darin and Geraldine state they are grateful for any help as they have been managing Darin?s condition without supports. ADVANCE DIRECTIVES:: None on file PRIMARY CARE PHYSICIAN:: Lydia Selby [facility] POTENTIAL DISCHARGE NEEDS:: To be determined by disposition PATIENT/FAMILY EDUCATION NEEDS:: Disease specific, limitations, follow up plan of care and benefits, resources. ANTICIPATED BARRIERS TO DISCHARGE:: Discharge disposition, supports and resources. PLAN:: Darin is receiving IV antibiotics, Cardizem to control afib, and fluids. He will have CT scan on . He remains ICU level of care. CM reported Darin?s pain and discomfort. Pallaitive care to continue to provide consultation. Discharge disposition to be determined.
[2018-10-18 08:37] LABS: Abs Immature Grans 0.12 k/cumm (0.0-0.09); HCT 37.5 % (40.0-50.0); HGB 12.3 g/dL (13.5-17.5); Mean Corp. HGB Concentration 32.8 g/dL (32.0-36.0); Mean Corpuscular Hemoglobin 29.2 pg (27.0-33.0); Mean Corpuscular Volume 89.1 fL (80-95); Mean Platelet Volume 9.9 fL (8.0-11.0); Platelet Count 260 x1000/uL (130-400); RBC 4.21 m/cumm (4.50-6.00); RBC Distribution Width 15.8 % (11.8-14.1); White Blood Cell Count 8.58 k/cumm (4.4-10.8)
[2018-10-18 08:44] LABS: Anion Gap 7.9 mmol/L (3-11); BUN 32 mg/dL (7-18); CO2 26.1 mmol/L (21.0-32.0); CREATININE 1.42 mg/dL (0.70-1.30); Calcium 8.4 mg/dL (8.5-10.1); Chloride 102 mmol/L (98-107); Cholesterol 70 mg/dL (50-200); Estimated GFR 49.58 (mL/min/1.73m2); Glucose 123 mg/dL (70-100); HDL Cholesterol 37 mg/dL (40-60); LDL CHOLESTEROL 22 mg/dL (<100); Sodium 136 mmol/L (136-145); TSH 1.62 uIU/mL (0.358-3.74); Triglyceride 62 mg/dL (30-150); Troponin I 0.03 ng/mL (0.00-0.06)
[2018-10-18] MEDS: Digoxin 0.25 MG TAB PO (08:54)
[2018-10-18 08:55] LABS: Lactate-non-spesis 1.2 mmol/l (0.6-1.4)
[2018-10-18] MEDS: Apixaban 5 MG TAB PO ×2 (08:55→20:11)
[2018-10-18 09:12] LABS: Absolute Lymphocyte Count 1.29 k/cumm (1.2-3.4); Absolute Monocyte Count 0.69 k/cumm (0.11-0.7); Absolute Neutrophil Count 6.44 k/cumm (1.2-6.7); Atypical Lymphocytes % 1
[2018-10-18 09:13] LABS: Anisocytosis 1+; Diff Comment Manual Differential; Polychromasia Present
[2018-10-18 09:14] LABS: Poikilocytes 1+
--- NOTE | 2018-10-18 10:01 | RESPIRATORY ---
Patient asked about home O2 or CPAP and patient states no for both - Hospitalist informed
[2018-10-18 10:46] LABS: NT-proBNP 1731 pg/mL
--- NOTE | 2018-10-18 10:56 | PHARADMIT ---
Admission Pharmacy Clinical Review FEVER, A-FIB has red rash wound in scrotum, Periarea- Lois's Paste ordered Code Status Full Code Current Weight Wgt- 129.1 kg Renally Cleared and Narrow Therapeutic Index Meds CrCl~ 56 mL/min Meds-OK QTc Value / Action Taken QTc-414 na BP Control, Fever BP-90/57 Tmax-38.1C Electrolytes reviewed Na- 136 K+4.0 mag-1.8 DVT Prophylaxis Epixaban Opiate Usage / Scheduled Bowel Regimen Ordered Yes No Plt/SCr for Heparin / Enoxaparin Plts-260 SCr-1.42 INR for Warfarin inr-1.2 H/H stable, WBC/Bands H&H- 12.3/37.5 WBC- 8.58 Antibiotic appropriateness Rocephin, Vancomycin Cultures and Sensitivities Blood-pending Flu-neg Surgical ABX d/c within 24 hr na DM control / Insulin Dosing BG-123 Heart Failure (Check EF%) (ALFRED's, B-Block, Diuretics) Digoxin, Lasix Drip, Diltiazem drip, Toprol-X;L IV to PO Switch No Home Meds Reviewed Yes Home Meds Not Ordered Lisinopril, Torsemide, Spironolactone Comments Troponin- 0.02 ^ 0.03
--- NOTE | 2018-10-18 11:42 | DI.US_ITS ---
SYMPTOMS/DIAGNOSIS: EDEMA CAMERON LOWER EXTREMITIES, ? DVT BILATERAL LOWER EXTREMITY ULTRASOUND: The deep veins of the lower extremities were evaluated. There is normal compression, augmentation and color flow in both lower extremities. No evidence of a deep venous thrombus is seen in either lower extremity. The saphenofemoral junctions are unremarkable bilaterally. There is edema seen in the soft tissues of the left lower extremity. IMPRESSION: No evidence of a deep venous thrombus in either lower extremity.
--- NOTE | 2018-10-18 11:42 | DI.US_ITS ---
SYMPTOMS/DIAGNOSIS: ABNL LFT'S ABDOMINAL ULTRASOUND: Routine examination. The distal aorta is not well visualized due to overlying bowel. The proximal aorta is of normal caliber. The inferior vena cava is unremarkable. The liver is enlarged measuring 23 cm in length. Portal venous flow is normal. There are numerous solid appearing masses within the liver. The largest is seen in the right lobe and measures 5.1 x 4.5 x 4.7 cm. No stones are seen in the gallbladder. No sludge or pericholecystic fluid is seen. The gallbladder wall is within normal limits. There was a negative sonographic Santiago's sign. Comet-tail artifact is seen within the wall of the gallbladder. The common duct is within normal limits at .6 cm. The pancreas is not well visualized on this examination due to overlying. The spleen and kidneys are unremarkable. There is a right sided pleural effusion present. IMPRESSION: 1. Enlarged liver. 2. Multiple hepatic masses. CT scan of the abdomen is recommended with contrast for further evaluation. 3. Right pleural effusion.
[2018-10-18] MEDS: Lidocaine 2% Jelly 6 ML SYR (13:10)
[2018-10-18] MEDS: Nystatin POWDER 60 GM JAR TP ×2 (13:10→20:11)
[2018-10-18 13:37] LABS: BE 0.2 mmol/L (-3-3); HCO3 25 mmol/L (22-28); pCO2 44 mmHg (34-47); pH 7.37 (7.35-7.45); pO2 80 mmHg (83-108); sO2 96 % (94-98); tCO2 23 mmol/L (22-29)
[2018-10-18 13:38] LABS: FIO2 Nasal cannula %; FIO2L 3 L; Site Right Radial
[2018-10-18 14:49] LABS: Digoxin 0.92 ng/mL (0.90-2.00); Troponin I 0.02 ng/mL (0.00-0.06)
[2018-10-18] MEDS: Metoprolol 5 MG/5 ML VIAL 2.5 MG IVP ×2 (15:50→22:27)
[2018-10-18] MEDS: Normal Saline Flush 10 ML SYR IVP ×2 (15:50→22:18)
--- NOTE | 2018-10-18 18:30 | W.PM.PROGNOT ---
Date of Service Date of service: 10/18/18 Time of Service: 14:00 Assessment and Plan (1) Sepsis: Current visit: Yes Status: Acute As indicated by positive blood culture (GPC's), fever, rapid heart rate. Blood cultures are being repeated. The patient will likely need a repeat echo. I have increased rocephin to 2 grams Q 24 hrs; continue vancomycin. Sources are likely below. Check and monitor CRP. Clinically fluid overloaded, so not on IVF. Needs to stay in the ICU. (2) CAP (community acquired pneumonia): Current visit: Yes Status: Acute RLL, pneumonia present on admission. Aspiration is a possibility. Obtain swallow eval in am, but we also need to make sure we rule out a malignancy. Will be going for CT of his chest/abdomen/pelvis tomorrow to have a better look. For now, continue vancomycin/rocephin. Consider atypical coverage if no improvement. (3) Cellulitis of left lower extremity: Current visit: Yes Status: Acute Being covered with rocephin/vancomycin. Venous doppler without evidence of DVT. Monitor. (4) Cellulitis of scrotum: Current visit: Yes Status: Acute Treat both the fungal and bacterial processes (clotrimazole/zinc/vitamin D ointments + abx as above). (5) Rapid atrial fibrillation: Current visit: Yes Status: Acute Likely part of the sepsis picture. Will attempt to wean cardizem drip (to which he is not having much response) and schedule IV lopressor with holding parameters. Continue apixaban. (6) Systolic and diastolic CHF, acute on chronic: Current visit: Yes Status: Acute Also, in ROGER. He is not in respiratory distress, so I am holding off on diuresis today, especially considering the lower BP's and in preparation for IV contrast with CT tomorrow. Low threshold for diuresis should respiratory status worsen tonight. (7) Acute respiratory failure with hypoxia: Current visit: Yes Status: Acute As above. Wean O2 as tolerated. Not diuresing tonight. (8) Liver masses: Current visit: Yes Status: Acute Dr Ulrich and I spoke with the patient about the possibility of cancer. He would like to wait for CT until tomorrow. He is not sure about his goals of care at this time, and hospice was already consulted for the patient prior to admission. He does not have a personal or family history of cancer, but given his weight loss and rapid deconditioning, as well as history of smoking and alcohol abuse, plus his overall appearance, malignancy is likely. We are also checking his CEA, CA 19-9 and PSA. (9) Weight loss, unintentional: Current visit: Yes Status: Acute As above (10) Pulmonary hypertension: Current visit: Yes Status: Acute It is likely this patient requires nocturnal O2 (even prior to admission). He could certainly benefit from a sleep study as outpatient as I suspect he has sleep apnea. For now, monitor volume status. (11) Acute kidney injury: Current visit: Yes Status: Acute Read discussion re diuresis above. (12) Sacral decubitus ulcer, stage II: Current visit: Yes Status: Acute Multiple, present on admission. Wound care consulted. Evidence of failure to thrive at home. On discharge, SNF should be strongly considered. PT/OT ar consulted. (13) Ambulatory dysfunction: Current visit: Yes Status: Acute PT/OT consults (14) Alcohol abuse: Current visit: Yes Status: Chronic CIWA with prn ativan; PO vitamins (15) Discharge planning issues: Current visit: Yes Status: Acute Goals of care to be established pending the results of the CT. I suspect this patient has a malignancy. Palliative care on board. May need SNF. (16) DVT prophylaxis: Current visit: Yes Status: Acute On therapeutic apixaban. Subjective Interval history since last seen: The patient complains of pain essentially all over. The one most annoying spot is right under his R shoulder blade. He is a little short of breath, states his chest hurts when you push on it. Denies nausea, but complains of early satiety, poor PO intake, and unintentional weight loss of >20 lbs in 2 months. Feels weak. Denies dizziness. States he does not feel confused, and his thinks his speech pattern is normal. Exam Narrative Exam Narrative: General: Obese middle-aged male, ill-appearing, speaking with a little bit of dysarthria, A&Ox3 HEENT: EOMI, MMM Heart: Irregularly irregular rhythm, tachycardic Lungs: Very diminished breath sounds B GI: abdomen is soft, minimally diffusely tender, nondistended : redness in the groin/lucie area, c/w both fungal dermatitis and bacterial superinfection. Has a crenshaw. Extremities: LLE more edematous and erythematous than the R, feels warm Objective Objective Clinical Data: Abnormal lab results 10/17/18 10/17/18 10/17/18 Range/Units 22:40 22:40 22:40 RBC (4.50-6.00) m/cumm Hgb (13.5-17.5) g/dL Hct (40.0-50.0) % RDW 15.6 H (11.8-14.1) % PT (9.3-11.0) sec INR (0.9-1.1) pO2 (83-108) mmHg BUN 28 H (7-18) mg/dL Creatinine (0.70-1.30) mg/dL Glucose 113 H (70-100) mg/dL Lactate 2.0 H (0.6-1.4) mmol/l Calcium (8.5-10.1) mg/dL AST 144 H (15-37) U/L ALT 87 H (12-78) U/L Alkaline Phosphatase 587 H (46-116) U/L NT-Pro-B Natriuret Pep ( - 299) pg/mL Albumin 2.0 L (3.4-5.0) g/dL HDL Cholesterol (40-60) mg/dL Urine Protein (Negative) mg/dL Urine Ketones (Negative) mg/dL Urine Blood (Negative) Urine Urobilinogen (Up TO 0.2) EU/dL 10/17/18 10/18/18 10/18/18 Range/Units 22:40 01:50 06:25 RBC (4.50-6.00) m/cumm Hgb (13.5-17.5) g/dL Hct (40.0-50.0) % RDW (11.8-14.1) % PT 11.7 H (9.3-11.0) sec INR 1.2 H (0.9-1.1) pO2 (83-108) mmHg BUN (7-18) mg/dL Creatinine (0.70-1.30) mg/dL Glucose (70-100) mg/dL Lactate (0.6-1.4) mmol/l Calcium (8.5-10.1) mg/dL AST 116 H (15-37) U/L ALT (12-78) U/L Alkaline Phosphatase 479 H (46-116) U/L NT-Pro-B Natriuret Pep ( - 299) pg/mL Albumin (3.4-5.0) g/dL HDL Cholesterol (40-60) mg/dL Urine Protein 100 H (Negative) mg/dL Urine Ketones Trace H (Negative) mg/dL Urine Blood Small H (Negative) Urine Urobilinogen 1.0 H (Up TO 0.2) EU/dL 10/18/18 10/18/18 10/18/18 Range/Units 06:25 06:25 13:30 RBC 4.21 L (4.50-6.00) m/cumm Hgb 12.3 L (13.5-17.5) g/dL Hct 37.5 L (40.0-50.0) % RDW 15.8 H (11.8-14.1) % PT (9.3-11.0) sec INR (0.9-1.1) pO2 80 L (83-108) mmHg BUN 32 H (7-18) mg/dL Creatinine 1.42 H (0.70-1.30) mg/dL Glucose 123 H (70-100) mg/dL Lactate (0.6-1.4) mmol/l Calcium 8.4 L (8.5-10.1) mg/dL AST (15-37) U/L ALT (12-78) U/L Alkaline Phosphatase (46-116) U/L NT-Pro-B Natriuret Pep 1731 H ( - 299) pg/mL Albumin (3.4-5.0) g/dL HDL Cholesterol 37 L (40-60) mg/dL Urine Protein (Negative) mg/dL Urine Ketones (Negative) mg/dL Urine Blood (Negative) Urine Urobilinogen (Up TO 0.2) EU/dL Vital Signs Temperature 35.8 C L 10/18/18 16:01 Temperature Source Temporal Artery Scan 10/18/18 16:01 Pulse 114 H 10/18/18 17:30 Pulse 111 H 10/18/18 17:30 Respiratory Rate 26 H 10/18/18 17:30 Respiratory Effort 10/18/18 16:01 Respiratory Depth Normal 10/18/18 16:01 Respiratory Pattern Tachypnea 10/18/18 16:01 Blood Pressure 90/57 L 10/18/18 17:30 Blood Pressure Mean 64 10/18/18 17:30 Blood Pressure Position Left Lateral 10/18/18 16:01 Pulse Oximetry 95 10/18/18 17:30 Oxygen Delivery Method Nasal Cannula 10/18/18 16:01 Oxygen Flow Rate 3 10/18/18 16:01 Pain Level 4 10/18/18 16:01 Comment 10/18/18 11:43 Intake & Output 10/17/18 10/18/18 10/18/18 23:59 11:59 23:59 Intake Total 2.667 / 2.667 2088.500 / 2879.750 791.25 / 2879.750 Output Total 375 / 725 350 / 725 Balance 2.667 / 2.667 1713.500 / 2154.750 441.25 / 2154.750 Weight 129.1 kg 129.1 kg 131.5 kg Intake: IV 2.667 / 2.667 938.500 / 1229.750 291.25 / 1229.750 Oral 1150 / 1650 500 / 1650 Output: Urine 375 / 725 350 / 725 Other: Urine Color Light Lorraine Light Lorraine Urine Appearance Clear Clear Urine Odor None Comment Voids to urinal Crenshaw in place draining dark yellow urine. Voiding Methods Urinal Laboratory Results WBC 8.58 k/cumm (4.4-10.8) 10/18/18 06:25 RBC 4.21 m/cumm (4.50-6.00) L 10/18/18 06:25 Hgb 12.3 g/dL (13.5-17.5) L 10/18/18 06:25 Hct 37.5 % (40.0-50.0) L 10/18/18 06:25 MCV 89.1 fL (80-95) 10/18/18 06:25 MCH 29.2 pg (27.0-33.0) 10/18/18 06:25 MCHC 32.8 g/dL (32.0-36.0) 10/18/18 06:25 RDW 15.8 % (11.8-14.1) H 10/18/18 06:25 Plt Count 260 x1000/uL (130-400) 10/18/18 06:25 MPV 9.9 fL (8.0-11.0) 10/18/18 06:25 Immature Gran % See Differential 10/18/18 06:25 Neutrophils % 51.0 10/18/18 06:25 Band Neutrophils % 24.0 % 10/18/18 06:25 Lymphocytes % 14.0 10/18/18 06:25 Atypical Lymphs % 1 10/18/18 06:25 Monocytes % 8.0 10/18/18 06:25 Eosinophils % 0.0 10/18/18 06:25 Basophils % 0.0 10/18/18 06:25 Metamyelocytes % 1.0 % 10/18/18 06:25 Myelocytes % 1.0 % 10/18/18 06:25 Absolute Neutrophils 6.44 k/cumm (1.2-6.7) 10/18/18 06:25 Absolute Lymphocytes 1.29 k/cumm (1.2-3.4) 10/18/18 06:25 Absolute Monocytes 0.69 k/cumm (0.11-0.7) 10/18/18 06:25 Absolute Eosinophils 0.00 k/cumm (0.0-0.7) 10/18/18 06:25 Absolute Basophils 0.00 k/cumm (0.0-0.2) 10/18/18 06:25 Differential Comment Manual differential 10/18/18 06:25 RBC Morphology See below 10/18/18 06:25 Polychromasia Present 10/18/18 06:25 Poikilocytosis 1+ 10/18/18 06:25 Anisocytosis 1+ 10/18/18 06:25 PT 11.7 sec (9.3-11.0) H 10/17/18 22:40 INR 1.2 (0.9-1.1) H 10/17/18 22:40 APTT 28.3 sec (21.0-31.4) 10/17/18 22:40 Sample Site Right radial 10/18/18 13:30 pCO2 44 mmHg (34-47) 10/18/18 13:30 pO2 80 mmHg (83-108) L 10/18/18 13:30 O2 Saturation 96 % (94-98) 10/18/18 13:30 ABG pH 7.37 (7.35-7.45) 10/18/18 13:30 ABG HCO3 25 mmol/L (22-28) 10/18/18 13:30 ABG Total CO2 23 mmol/L (22-29) 10/18/18 13:30 ABG Base Excess 0.2 mmol/L (-3-3) 10/18/18 13:30 Oxygen Liter Flow 3 L 10/18/18 13:30 FiO2 Nasal cannula % 10/18/18 13:30 Sodium 136 mmol/L (136-145) 10/18/18 06:25 Potassium 4.0 mmol/L (3.5-5.1) 10/18/18 06:25 Chloride 102 mmol/L (98-107) 10/18/18 06:25 Carbon Dioxide 26.1 mmol/L (21.0-32.0) 10/18/18 06:25 Anion Gap 7.9 mmol/L (3-11) 10/18/18 06:25 BUN 32 mg/dL (7-18) H 10/18/18 06:25 Creatinine 1.42 mg/dL (0.70-1.30) H 10/18/18 06:25 Estimated GFR/1.73 m2 49.58 (mL/min/1.73m2) 10/18/18 06:25 Glucose 123 mg/dL (70-100) H 10/18/18 06:25 Lactate 1.2 mmol/l (0.6-1.4) 10/18/18 08:50 Calcium 8.4 mg/dL (8.5-10.1) L 10/18/18 06:25 Magnesium 1.8 mg/dL (1.8-2.4) 10/17/18 22:40 Total Bilirubin 0.5 mg/dL (0.2-1.0) 10/17/18 22:40 AST 116 U/L (15-37) H 10/18/18 06:25 ALT 72 U/L (12-78) 10/18/18 06:25 Alkaline Phosphatase 479 U/L (46-116) H 10/18/18 06:25 Troponin I 0.02 ng/mL (0.00-0.06) 10/18/18 14:20 NT-Pro-B Natriuret Pep 1731 pg/mL (-299) H 10/18/18 06:25 Total Protein 6.4 g/dL (6.4-8.2) 10/17/18 22:40 Albumin 2.0 g/dL (3.4-5.0) L 10/17/18 22:40 Triglycerides 62 mg/dL (30-150) 10/18/18 06:25 Total Cholesterol 70 mg/dL (50-200) 10/18/18 06:25 LDL Cholesterol Direct 22 mg/dL (<100) 10/18/18 06:25 HDL Cholesterol 37 mg/dL (40-60) L 10/18/18 06:25 TSH 1.62 uIU/mL (0.358-3.74) 10/18/18 06:25 Urine Color Yellow (Yellow) 10/18/18 01:50 Urine Clarity Clear 10/18/18 01:50 Urine pH 5.5 (5-8) 10/18/18 01:50 Ur Specific [place] 1.025 (1.005-1.025) 10/18/18 01:50 Urine Protein 100 mg/dL (Negative) H 10/18/18 01:50 Urine Ketones Trace mg/dL (Negative) H 10/18/18 01:50 Urine Blood Small (Negative) H 10/18/18 01:50 Urine Nitrite Negative (Negative) 10/18/18 01:50 Urine Bilirubin Negative (Negative) 10/18/18 01:50 Urine Urobilinogen 1.0 EU/dL (Up TO 0.2) H 10/18/18 01:50 Ur Leukocyte Esterase Negative (Negative) 10/18/18 01:50 Urine RBC 0-2 (0-2) 10/18/18 01:50 Urine WBC 0-2 HPF (0-5) 10/18/18 01:50 Ur Epithelial Cells Moderate HPF (Negative) 10/18/18 01:50 Urine Crystals Negative HPF (Negative) 10/18/18 01:50 Urine Bacteria Few HPF (Negative) 10/18/18 01:50 Urine Casts 5-10 hyaline LPF (Negative) 10/18/18 01:50 Urine Mucus Negative (Negative) 10/18/18 01:50 Ur Culture Indicated? No 10/18/18 01:50 Urine Glucose Negative mg/dL (Negative) 10/18/18 01:50 Digoxin 0.92 ng/mL (0.90-2.00) 10/18/18 14:20 US venous: No evidence of a deep venous thrombus in either lower extremity. US abdomen: 1. Enlarged liver. 2. Multiple hepatic masses. CT scan of the abdomen is recommended with contrast for further evaluation. 3. Right pleural effusion.
[2018-10-18] MEDS: Rosuvastatin 10 MG TAB 40 MG PO (20:11)
[2018-10-18] MEDS: Normal Saline 500 ML 100 ML IV (22:50)
[2018-10-18 23:53] LABS: Vancomycin, Trough 16.3 ug/mL (10.0-20.0)
[2018-10-19] VITALS (45 sets, daily range): BP systolic 76–115; BP diastolic 13–75; PULSE 70–151; RESP 16–28; TEMP 35.8–36.3; O2SAT 88–97
[2018-10-19] MEDS: Metoprolol 5 MG/5 ML VIAL 2.5 MG IVP (04:53)
[2018-10-19] MEDS: Normal Saline Flush 10 ML SYR IVP ×2 (04:54→23:10)
--- NOTE | 2018-10-19 08:07 | EVALE_ITS ---
Date of service: 10/19/18 Time of Service: 06:45 Speech Therapy Evaluation Note: REFERRING PROVIDER: Dr. Abreu BACKGROUND This is a 68 year old right-handed male with known liver masses and a recent h/o weight loss who presented to the ED from home on 10/17/18 with an 8- week h/o dyspnea and a 1-day h/o fever. A CXR of the same date showed a RLL opacity indicating a possible pneumonia. He was admitted for tx of sepsis and pneumonia and is currently followed for CHF, acute respiratory failure with hypoxia, a-fib and cellulitis. He is on palliative care. PMH; CHF, A-fib, HTN, PVD, ETOH abuse, sleep apnea, hyperlipidemia and a h/o smoking. The patient (pt) is able to provide additional background information with regard to p.o. consistencies taken at home in the weeks prior to this admission. He takes what, by description, are Thin liquids, a Dysphagia Advanced diet with chopped meats and whole pills with a liquid wash. He denies any h/o CVA. OBJECTIVE Nursing reports: - T: 35.8 - O2 sat: 94% on 3 L via NC - LS: Nursing unable to hear any air exchange - Pt currently on ABX - Pt has been tolerating whole pills with a Thin liquid wash. The pt is sleeping lightly and wakes easily to my verbal greeting. He makes good direct eye contact and offers an intelligible verbal greeting of his own. He converses well, both asking and answering questions, but his dyspnea is evident during prolonged conversation. He is A & O x 4 and able to follow 3- step directions. Oral Sensorimotor Exam The pt is totally edentulous and wears both a full upper and full lower denture. He reports that these dentures are about 6 years old and do not cause him any discomfort. On visual and manual inspection, the dentures look new and the FUD fits well without use of adhesive. Oral sensation is WNL bilaterally (B) for buccal, labial and lingual areas. Motorically, the smile is symmetrical as are forehead wrinkles. Labial and buccal strength/coordination is wWNL-B. Left lingual deviation is seen on protrusion in a setting of mildly-moderately decreased excursion. Lingual lateralization is WNL-B; lingual rapid alternating movements are mildly decreased. Lingual strength is decreased for the right tongue base. Mandibular lateralization is WNL-B. Velopharyngeal elevation is strong and symmetrical. Volitional cough is mildly-moderately decreased; volitional throat-clear is strong. Speech intelligibility to this unfamiliar listener in a setting of moderate background noise is 100%. Vocal intensity and quality are WNL. The pt is noted to have a phlegmy-sounding but nonproductive cough in the absence of p.o. intake. Swallowing - Honey-thick liquid: Good bolus control and posterior oral transit (POT); no ivana signs/symptoms (s/s) of aspiration/penetration (A/P); oral clearance 100%; no oral escape. These results are true for both single and consecutive swallows by cup. - Newberry-thick liquid: Results are the same as for Honey-thick liquid. These results are true for both single and consecutive swallows by both cup and straw. - Thin liquid: Results are the same as for Newberry-thick liquid. - Puree food: Good bolus control and linguopalatal bolus compression; POT is WNL; no ivana s/s A/P; oral clearance 100; no oral escape. - Mechanically Altered food: Good mastication quality with use of a combination rotary-munch chew pattern; bolus control and POT both WNL; no ivana s/s A/P; oral clearance 100%; no oral escape. - Dysphagial Advanced food: Results are the same as for M. A. food with the exception of the use of increased mastication time, but this does result in good mastication quality. The pt is observed to self-feed using his dominant RUE and a regular utensil. A very occasional phlegmy-sounding but nonproductive cough is noted during and at the conclusion of p.o. intake but this cough is not felt to be connected to swallows of p.o. consistencies. It should also be noted that the pt's HOB could not be put close to 90 degrees, so pillow support was needed. INTERPRETATION The pt shows a mild oral-prep dysphagia in a setting of full upper and lower dentures. No clinical signs of a pharyngeal dysphagia are seen with intake of appropriate food and liquid consistencies. However, other factors could be putting a burden on swallow function at times (e.g., his dyspnea, the bilateral lingual weakness in the absence of any acute infarct or progressive neurological disease, generalized weakness due to medical status, foods that may have been too firm to adequately chew). RECOMMENDATIONS 1. Change to a Dysphagia Advanced diet with chopped meats 2. Continue: a) Thin liquids b) whole pills with a liquid wash 3. Independent self-feeding 4. Upper body at 90 degrees as tolerated when taking p.o. nutri./hydra./medica. 5 Speech therapy to maximize swallow function. Thank you for referring this pt.
--- NOTE | 2018-10-19 08:15 | PDOC.CMPRO ---
- If Service Date Differs Date of service: 10/19/18 Time of Service: 08:16 Care Management Progress Note S/O: Darin remains in the ICU speech met with him today and recommended a dysphagia diet. Flash is met with Dr. Ulrich with his spouse and daughters. Flash has decided to return home on hospice. CM contacted [facility] and hospice will consult with family between 930 and 1030 on Tuesday. Plan will be for Flash to return home with hospice services. Per provider decision related to IV antibiotics versus oral antibiotics pending. Flash would like to return home tomorrow. COLST was completed and scanned to access and place in the chart. A: Flash is a 68 year old male admitted with fever, afib and positive blood cultures. By ultrasound he has several lesions on his liver. He will have a CT scan today to evaluate the lesions. P: Flash remains in the ICU, anticipate he will discharge home with hospice services tomorrow. Hospice to consult here in the morning. CM to continue to provide support to patient, family, care team ongoing planning and discharge disposition.
[2018-10-19 09:05] LABS: Abs Immature Grans 0.15 k/cumm (0.0-0.09); Absolute Basophil Count 0.02 k/cumm (0.0-0.2); Absolute Eosinophil Count 0.05 k/cumm (0.0-0.7); Absolute Lymphocyte Count 0.99 k/cumm (1.2-3.4); Absolute Monocyte Count 0.51 k/cumm (0.11-0.7); Absolute Neutrophil Count 6.08 k/cumm (1.2-6.7); Basophils % 0.3; Eosinophils % 0.6; HCT 38.9 % (40.0-50.0); HGB 12.3 g/dL (13.5-17.5); Immature Grans % 1.9; Lymphocytes % 12.7; Mean Corp. HGB Concentration 31.6 g/dL (32.0-36.0); Mean Corpuscular Hemoglobin 28.6 pg (27.0-33.0); Mean Corpuscular Volume 90.5 fL (80-95); Mean Platelet Volume 9.3 fL (8.0-11.0); Monocytes % 6.5; Platelet Count 239 x1000/uL (130-400); RBC Distribution Width 15.8 % (11.8-14.1)
[2018-10-19 09:09] LABS: Anion Gap 8.9 mmol/L (3-11); BUN 25 mg/dL (7-18); C-Reactive Protein 13.65 mg/dL (0.0-0.3); CO2 29.1 mmol/L (21.0-32.0); CREATININE 1.25 mg/dL (0.70-1.30); Calcium 8.7 mg/dL (8.5-10.1); Chloride 99 mmol/L (98-107); Estimated GFR 57.44 (mL/min/1.73m2); Glucose 110 mg/dL (70-100); Potassium 3.4 mmol/L (3.5-5.1); Sodium 137 mmol/L (136-145)
[2018-10-19] MEDS: Metoprolol CR 100 MG TABCR 200 MG PO (09:18)
[2018-10-19] MEDS: Multivitamin TAB 1 TAB PO (09:19)
[2018-10-19] MEDS: Folic Acid 1 MG TAB PO (09:19)
[2018-10-19] MEDS: Digoxin 0.25 MG TAB PO (09:19)
[2018-10-19] MEDS: Apixaban 5 MG TAB PO (09:19)
[2018-10-19] MEDS: Thiamine 100 MG TAB PO (09:20)
[2018-10-19] MEDS: oxyCODONE 5 MG TAB PO (09:21)
[2018-10-19 09:23] LABS: Hemoglobin A1C 7.5 % (4.5-6.2)
[2018-10-19] MEDS: Metoprolol 5 MG/5 ML VIAL IVP ×2 (10:45→23:11)
[2018-10-19 10:55] LABS: Creatine Kinase 277 U/L (39-308)
[2018-10-19] MEDS: Nystatin POWDER 60 GM JAR TP ×3 (11:05→20:50)
[2018-10-19] MEDS: THIAMINE 100 MG in Normal Saline 100 ML 200 MG IVPB (11:22)
[2018-10-19 11:32] LABS: Folate 2.6 ng/mL (8.6-20.0); Vitamin B12 723 pg/mL (193-986)
[2018-10-19] MEDS: Potassium Chloride 20 MEQ TABCR 40 MEQ PO (11:42)
--- NOTE | 2018-10-19 11:45 | OT.INIE ---
Occupational Therapy Notes Inpatient Occupational Therapy Evaluation Date: 10/19/18 Referring Doctor:Bessie Abreu MD OT Orders: Eval and Treat Precautions: Fall, Standard PATIENT PROFILE/ADMITTING DIAGNOSIS: Pt is a 68 year old male who was seen in the ER on 10/17/18 for A-Fib with RVR, sepsis, SOB and fever. Past Medical History: congestive heart failure, atrial fibrillation, hypertension, hyperlipidemia, peripheral vascular disease, sleep apnea, alcohol use. Social History/Home Situation: Pt lives in a mobile home with his . He reports that there are 4 steps to enter and 2 now with all the snow. He states that in the past couple weeks he has spent most of his time in a chair. He washes up standing at the sink, he uses a toilet but has a low rise toilet making this difficult. His does all the driving and he is able to get himself dressed (I) at baseline in sitting. Equipment owned/DME: None per pt report. SUBJECTIVE: Pt was sitting in bed with his present in the room. He is agreeable to OT session. OBJECTIVE: General Observation: Telemetry, IV (B) UE, BP (R) UE Mental Status: A&Ox3 Pain: c/o pain in (L) leg and lucie area. ROM: RUE AROM WNL L UE AROM WNL STRENGTH: RUE Shoulder flexion 3+/5, elbow 5/5, site surveyor is strong and symmetrical LUE Shoulder flexion 3+/5, elbow 5/5, site surveyor is strong and symmetrical FUNCTIONAL MOBILITY/ADLS: Supine-sit Mod (A) x2 BALANCE: Static sitting Good Dynamic Sitting Good Static Standing NT Dynamic Standing NT SPECIAL TESTS: Daily Activity Limitations Standardized Measure [facility] AM -PAC ?6 clicks? Daily Activity Inpatient Short Form: Raw score: 20 Standardized score: 42.03 CMS score: 38.32% INFORMED CONSENT/EDUCATION: Pt instructed in purpose of OT Consult and plan of care. ASSESSMENT: Patient is a 68-year-old male referred to occupational therapy services with diagnosis of A-Fib with RVR, sepsis, SOB and fever. Patient presents with clinical signs and symptoms consistent with dx, as demonstrated by the following impairment level findings: decreased bed mobility and functional mobility for ADL performance, decreased standing tolerance and functional activity tolerance, increased pain in multiple places including groin, legs, back, arms which pt reports has been off and on for weeks. Impairments are contributing to the following functional limitations: Decreased (I) in ADL routines, pt is unable to perform ADLs at baseline. AMPAC score 20, CMS score 38.32% Patient is assessed as a high 69254 complexity based on the following: History: See Above Examination: See Above Presentation: Evolving Decision Making: AMPAC score 20, CMS score 38.32% GOALS Goals x1 week in hospital setting 1. Transfers SBA, FWW 2. Dressing In sitting position (I) with UE and LE dressing. 3. Bathing In sitting at sink with FWW (SBA) pt will be able to perform UE bathing. Sitting in chair (I) with LE bathing. 4. Toileting On toilet (I) PLAN OF CARE/TREATMENT PLAN: 1x/day, 5 days/ week x 1week Initiate Occupational Therapy Services for bathing, dressing, grooming, toileting, eating, transfer training. DISCHARGE RECOMMENDATIONS Pt is not receptive to go any where but home as he expressed to OT. If pt returns home OT recommends home health services. OT recommends a shower bench and grab bars to increase pts safety in bathing routine due to weakness. OT recommends a hospital bed as pt is weak and unable to perform bed mobility limiting him to sleeping in a recliner which he has difficulty getting up from. OT recommends raised toilet seat to increase pts (I) in toileting routine as pt has a low rise toilet which he is unable to safely get off from. TREATMENT TIME/MINUTES/CODES 03204, 30 minutes (10:00) Natalie Shukla OTR/[facility]
--- NOTE | 2018-10-19 11:50 | OTIE_ITS ---
Occupational Therapy Notes Inpatient Occupational Therapy Evaluation Date: 10/19/18 Referring Doctor:Bessie Abreu MD OT Orders: Eval and Treat Precautions: Fall, Standard PATIENT PROFILE/ADMITTING DIAGNOSIS: Pt is a 68 year old male who was seen in the ER on 10/17/18 for A-Fib with RVR, sepsis, SOB and fever. Past Medical History: congestive heart failure, atrial fibrillation, hypertension, hyperlipidemia, peripheral vascular disease, sleep apnea, alcohol use. Social History/Home Situation: Pt lives in a mobile home with his . He repo rts that there are 4 steps to enter and 2 now with all the snow. He states that in the past couple weeks he has spent most of his time in a chair. He washes up standing at the sink, he uses a toilet but has a low rise toilet making this difficult. His does all the driving and he is able to get himself dressed (I) at baseline in sitting. Equipment owned/DME: None per pt report. SUBJECTIVE: Pt was sitting in bed with his present in the room. He is agreeable to OT session. OBJECTIVE: General Observation: Telemetry, IV (B) UE, BP (R) UE Mental Status: A&Ox3 Pain: c/o pain in (L) leg and lucie area. ROM: RUE AROM WNL L UE AROM WNL STRENGTH: RUE Shoulder flexion 3+/5, elbow 5/5, marketing production specialist is strong and symmetrical LUE Shoulder flexion 3+/5, elbow 5/5, marketing production specialist is strong and symmetrical FUNCTIONAL MOBILITY/ADLS: Supine-sit Mod (A) x2 BALANCE: Static sitting Good Dynamic Sitting Good Static Standing NT Dynamic Standing NT SPECIAL TESTS: Daily Activity Limitations Standardized Measure [facility] AM -PAC ?6 clicks? Daily Activity Inpatient Short Form: Raw score: 20 Standardized score: 42.03 CMS score: 38.32% INFORMED CONSENT/EDUCATION: Pt instructed in purpose of OT Consult and plan of care. ASSESSMENT: Patient is a 68-year-old male referred to occupational therapy services with diagnosis of A-Fib with RVR, sepsis, SOB and fever. Patient presents with clinical signs and symptoms consistent with dx, as demonstrated by the following impairment level findings: decreased bed mobility and functional mobility for ADL performance, decreased standing tolerance and functional activity tolerance, increased pain in multiple places including groin, legs, back, arms which pt reports has been off and on for weeks. Impairments are contributing to the following functional limitations: Decreased (I) in ADL routines, pt is unable to perform ADLs at baseline. AMPAC score 20, CMS score 38.32% Patient is assessed as a high 17017 complexity based on the following: History: See Above Examination: See Above Presentation: Evolving Decision Making: AMPAC score 20, CMS score 38.32% GOALS Goals x1 week in hospital setting 1. Transfers SBA, FWW 2. Dressing In sitting position (I) with UE and LE dressing. 3. Bathing In sitting at sink with FWW (SBA) pt will be able to perform UE bathing. Sitting in chair (I) with LE bathing. 4. Toileting On toilet (I) PLAN OF CARE/TREATMENT PLAN: 1x/day, 5 days/ week x 1week Initiate Occupational Therapy Services for bathing, dressing, grooming, toileting, eating, transfer training. DISCHARGE RECOMMENDATIONS Pt is not receptive to go any where but home as he expressed to OT. If pt returns home OT recommends home health services. OT recommends a shower bench and grab bars to increase pts safety in bathing routine due to weakness. OT recommends a hospital bed as pt is weak and unable to perform bed mobility limiting him to sleeping in a recliner which he has difficulty getting up from. OT recommends raised toilet seat to increase pts (I) in toileting routine as pt has a low rise toilet which he is unable to safely get off from. TREATMENT TIME/MINUTES/CODES 25227, 30 minutes (10:00) Natalie Shukla OTR/[facility]
--- NOTE | 2018-10-19 13:06 | PT.INIE ---
Time of Service: 11:08 PT Notes Inpatient Physical Therapy Evaluation Date: 10/19/2018 Referring Doctor: Dr. Bessie Abreu PT Orders: PT CONSULT: Eval and treat Precautions: Fall. Standard. Low activity tolerance. Patient Profile/Admitting Diagnosis: Patient is a 68-year-old male patient admitted on 10/18/2018 with with fever, sepsis, RVR and SOB. PMHX: Congestive heart failure, atrial fibrillation, hypertension, hyperlipidemia, peripheral vascular disease, sleep apnea, alcohol use. Social History/Home Situation: Pt lives in a mobile home with his , has 4 steps to enter with rails on both sides. Both patient and state that he is able to tolerate short distances from bedroom to bathroom using a standard walker but has had shortness of breath for several weeks now and has declined since. He states that he is able to sit up on the edge of the bed prior to admission. Equipment Owned/DME: Standard walker. Subjective: Patient states that he feels generally weak and short of breath. He states that his left lower extremity is weaker than the right. He is agreeable to a physical therapy evaluation. Objective: General Observation: Patient seen lying in bed conversing with . IV line in the left UE. Smith catheter in place. No oxygen cannula on. Mental Status: Alert and oriented x3 Pain: Left foot and leg with moderate pain. Vital Signs: Blood pressure=96/66 mmHg, Heart phnk=908 bpm. ROM: Right Upper Extremity: WFL Left Upper Extremity: WFL Right Lower Extremity: WFL Left Lower Extremity: Patient was able to to slide heel upward and bend the knee although with moderate discomfort on the foot and posterior leg. Hip flexion less than 90 degrees. Knee flexion approximately 30-40 degrees actively. Strength: Right Upper Extremity: Not tested. See OT evaluation. Left Upper Extremity: Not tested. See OT evaluation. Right Lower Extremity: Hip flexors 4/5. Knee extensors 4/5. Knee flexors 4+/5. Ankle ankle dorsiflexors/plantar flexors 4+/5. Left Lower Extremity: Hip flexors 3-/5. Knee extensors 3/5. Knee flexors 3+/5. Ankle dorsiflexors/plantar flexors 4-/5. Bed Mobility/Transfers: Supine to sit: Max A, HOB elevated about 30 degrees. Nurse holding holding onto patient's hand for support PT supporting left heel. OT standby assist for safety. Maximum assist to scoot forward in bed. Sit to supine:Max A, HOB elevated about 30 degrees. Sit to stand: Max A, using FWW, both hands needing to push for support. Stand to sit:Max A, using FWW, both hands needing to push for support and to control descent. Gait: Deferred gait activity today due to increased heart rate and fatigue. Patient able to do 2 sidesteps towards head of bed and take 2 small steps to back up onto bed prior to sitting down. Patient tolerated 4:43 minutes of static standing while holding onto FWW with minimal assist of PT. Balance: Static Sitting: Fair plus Dynamic Sitting: Fair plus Static Standing: Fair Dynamic Standing: Fair Special Tests: Mobility Limitations Standardized Measure [facility] AM-PAC 6 clicks Basic Mobility Inpatient Short Form: Raw Score: 9 CMS Score: 9 Informed Consent/Education: Patient instructed in purpose of PT consult and plan of care. Assessment: Patient is a 68 year old male referred to physical therapy services with the diagnosis of sepsis and RVR. Patient presents with clinical signs and symptoms consistent with significant functional decline related to medical issues, as demonstrated by the following impairment level findings: 1. Impaired active range of motion on the left LE 2. Diminished strength to BLE 3. Impaired sitting and standing balance due to weakness 4. Decreased activity tolerance due to fatigue Impairments are contributing to the following functional limitations: 1. Unable to safely perform bed mobility skills 2. Increased dependence with transfers 3. Decreased safety of mobility ADLs due to balance issues 4. Increased completion time for mobility ADL performance Patient is assessed as a High complexity 20612 based on the following: History: Patient is a 68-year-old male patient admitted on 10/18/2018 presenting with complicated medical history and with significant functional decline. is the major caregiver providing needed assistance with all aspects of ADLs. Full medical history can be found as noted above. Examination: Functional limitations as noted above Presentation: Unstable Decision Makin high complexity Goals: Goals X1 week 1. Supine-Sit independent 2. Sit-Supine independent 3. Sit-Stand independent 4. Stand-Sit independent 5. Bed-Chair independent 6. Chair-Bed independent 7. Gait Supervision 8. Stairs Supervision 9. Independent with home exercise program 10. Balance Good Plan of Care/Treatment Plan: 1-2x/day, 7 days/week x 1 week. Plan of care has been reviewed with the [employer] providing the service under Physical Therapy direction. Initiate Physical Therapy intervention for strengthening, bed mobility, transfers, gait, stairs, balance training, use of assistive device. DISCHARGE RECOMMENDATIONS: Return to home with FWW. May benefit from home health PT and OT services in order to increase independence at discharge destination and reduce fall risk. Patient will also benefit from a hospital bed and a bedside commode independence and maximize safety at home. TREATMENT CODE/TIME: 43416 14 minutes beginning at 10:30 AM, 62721 17 minutes beginning at 11:08 AM.
--- NOTE | 2018-10-19 16:33 | WOUNDCARE ---
Wound Care Report Pt seen at bedside. Agreeable to consult. in room. H&P, labs and all pertinent information reviewed. Pt is to go home on hospice tomorrow. Goal of care is not healing but for wound to stay stable and not deteriorate. Education done with Patient and his on the importance of position change and pressure relief from stage 2 pressure ulcer on right upper medial buttocks. 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 Recommend position changes to relieve pressure off of buttocks and sacral area Q2H and Mepilex Sacral dressing, change every 3 days and PRN. Will have hospital bed at home according to . instructed to watch for wound's deterioration and increase in size. Pt instructed to report any increase in pain to health care providers. Pt also has fungal infection/cellulitis in groin fold and scrotum. Small tatiana from unknown source noted to be actively bleeding during consult. pressure with gauze applied, did not stop bleeding. Moderate piece of Calcium alginate applied to help control bleed. No more bleeding noted at this time. Advised nurse Pond to continue to monitor scrotal bleed site, Pt is on anticoagulants. Recommend continuing current prescribed Tx by MD for groin and scrotal skin problems, Nystatin for groin folds and triple paste for scrotal rawness, both TID.
--- NOTE | 2018-10-19 18:36 | PGE_ITS ---
Date of Service Date of service: 10/19/18 Time of Service: 12:15 Assessment and Plan (1) Sepsis: Current visit: Yes Status: Acute Blood cultures are positive for Group G strep. Reviewing our microbiology data, I see that the patient has grown Group G strep in his LLE wound before, so this seems to be the most likely source. I suspect he has osteomyelitis in LLE. Patient refuses further imagining. Repeat blood cultures are pending. Continue rocephin to 2 grams Q 24 hrs; Will d/c vancomycin. Continue to monitor CRP. Transfer to medical surgical floor. *Patient is discussing with Dr Ulrich/manohar whether or not he will be able to receive IV antibiotics under hospice. (2) CAP (community acquired pneumonia): Current visit: Yes Status: Acute RLL, pneumonia present on admission. Aspiration is a possibility as he does have dysphagia - given his intention to go on hospice, he would not like us to restrict his diet, however. Continue rocephin. I have d/c'ed vancomcying. Wean O2 as tolerated. (3) Cellulitis of left lower extremity: Current visit: Yes Status: Acute Continue high dose rocephin. Vancomycin is being d/c'ed. There is a question of underlying ostoemyelitis in the LLE - however, patient refuses invasive testing. Will discuss with patient if he would be open to getting an xray of the leg. (4) Cellulitis of scrotum: Current visit: Yes Status: Acute Treat both the fungal and bacterial processes (clotrimazole/zinc/vitamin D ointments + abx as above). Appreciate wound care consult. (5) Rapid atrial fibrillation: Current visit: Yes Status: Acute Likely part of the sepsis picture. Off cardizem gtt and no longer officially in ICU status. Continue toprol XL with prn IV lopressor written. Apixaban d/c'ed. (6) Systolic and diastolic CHF, acute on chronic: Current visit: Yes Status: Acute Still off diuresis due to borderline BP's and because the patient still wants me to try to control his HR. Low threshold for diuresis should respiratory status worsen. (7) Acute respiratory failure with hypoxia: Current visit: Yes Status: Acute As above. Wean O2 as tolerated. (8) Liver masses: Current visit: Yes Status: Acute The patient changed his mind and won't be pursuing CTs of his chest/abdomen/pelvis. He is electing to go on hospice, though he would still like IV abx and heart rate control. Made DNR/DNI. CEA, CA 19-9 and PSA. (9) Weight loss, unintentional: Current visit: Yes Status: Acute As above (10) Pulmonary hypertension: Current visit: Yes Status: Acute It is likely the patient requires nocturnal O2/O2 on discharge. (11) Acute kidney injury: Current visit: Yes Status: Acute Read discussion re diuresis above. (12) Sacral decubitus ulcer, stage II: Current visit: Yes Status: Acute Multiple, present on admission. Wound care consulted - recommendations appreciated. (13) Ambulatory dysfunction: Current visit: Yes Status: Acute PT/OT consults (14) Alcohol abuse: Current visit: Yes Status: Chronic CIWA with prn ativan; PO vitamins (15) Discharge planning issues: Current visit: Yes Status: Acute DNR/DNI Home hospice vs SNF with IV abx is being considered. (16) DVT prophylaxis: Current visit: Yes Status: Acute Chemical ppx d/c'ed given a high probability of malignancy (?brain mets) Subjective Interval history since last seen: Lengthy discussion with patient today in regards to his goals of care. He is not interested in doing the CT scans to find out what kind/if he has cancer. He would like to be DNR/DNI. He would like to go home PEE, and he is interested in going home on hospice. He would like to stay on telemetry and for me to try to get his heart rate under control. He would like to treat his infection and stay on IV antibiotics. He understands that there is a risk to taking blood thinners if he has cancer - and he would like to discuss it with his . Exam Narrative Exam Narrative: General: Obese middle-aged male, ill-appearing but looks better today, speaking with a little bit of dysarthria, A&Ox3 HEENT: EOMI, MMM Heart: Irregularly irregular rhythm, tachycardic Lungs: Very diminished breath sounds B GI: abdomen is soft, minimally diffusely tender, nondistended Extremities: LLE more edematous and erythematous than the R (looks better today), feels warm Objective Objective Clinical Data: Abnormal lab results 10/19/18 10/19/18 10/19/18 Range/Units 08:10 08:10 08:10 RBC 4.30 L (4.50-6.00) m/cumm Hgb 12.3 L (13.5-17.5) g/dL Hct 38.9 L (40.0-50.0) % MCHC 31.6 L (32.0-36.0) g/dL RDW 15.8 H (11.8-14.1) % Absolute Lymphocytes 0.99 L (1.2-3.4) k/cumm Potassium 3.4 L (3.5-5.1) mmol/L BUN 25 H (7-18) mg/dL Glucose 110 H (70-100) mg/dL Hemoglobin A1c 7.5 H (4.5-6.2) % C-Reactive Protein 13.65 H (0.0-0.3) mg/dL Folate 2.6 L (8.6-20.0) ng/mL Vital Signs Temperature 36 C L 10/19/18 15:20 Temperature Source Temporal Artery Scan 10/19/18 15:20 Pulse 78 10/19/18 15:46 Pulse Rhythm Irregular 10/19/18 15:20 Pulse 115 H 10/19/18 15:46 Respiratory Rate 23 10/19/18 15:46 Respiratory Effort 10/19/18 15:20 Respiratory Depth Normal 10/19/18 15:20 Respiratory Pattern Normal 10/19/18 15:20 Blood Pressure 106/61 10/19/18 15:46 Blood Pressure Mean 72 10/19/18 15:46 Blood Pressure Position Supine 10/19/18 07:40 Pulse Oximetry 95 10/19/18 15:20 Oxygen Delivery Method Nasal Cannula 10/19/18 15:20 Oxygen Flow Rate 2 10/19/18 15:20 Pain Level 0 10/19/18 15:20 Comment 10/18/18 11:43 Intake & Output 10/18/18 10/19/18 10/19/18 23:59 11:59 23:59 Intake Total 915.708 / 3054.208 810 / 1401 591 / 1401 Output Total 650 / 1025 450 / 775 325 / 775 Balance 265.708 / 2029.208 360 / 626 266 / 626 Weight 131.5 kg 132.7 kg Intake: IV 415.708 / 1404.208 310 / 661 351 / 661 Oral 500 / 1650 500 / 740 240 / 740 Output: Urine 650 / 1025 450 / 775 325 / 775 Other: Urine Color Light Lorraine Light Lorraine Light Lorraine Urine Appearance Clear Cloudy Cloudy Comment total output 300ml this shift small amounts of blood coming from penis Laboratory Results WBC 7.80 k/cumm (4.4-10.8) 10/19/18 08:10 RBC 4.30 m/cumm (4.50-6.00) L 10/19/18 08:10 Hgb 12.3 g/dL (13.5-17.5) L 10/19/18 08:10 Hct 38.9 % (40.0-50.0) L 10/19/18 08:10 MCV 90.5 fL (80-95) 10/19/18 08:10 MCH 28.6 pg (27.0-33.0) 10/19/18 08:10 MCHC 31.6 g/dL (32.0-36.0) L 10/19/18 08:10 RDW 15.8 % (11.8-14.1) H 10/19/18 08:10 Plt Count 239 x1000/uL (130-400) 10/19/18 08:10 MPV 9.3 fL (8.0-11.0) 10/19/18 08:10 Immature Gran % 1.9 10/19/18 08:10 Neutrophils % 78.0 10/19/18 08:10 Band Neutrophils % 24.0 % 10/18/18 06:25 Lymphocytes % 12.7 10/19/18 08:10 Atypical Lymphs % 1 10/18/18 06:25 Monocytes % 6.5 10/19/18 08:10 Eosinophils % 0.6 10/19/18 08:10 Basophils % 0.3 10/19/18 08:10 Metamyelocytes % 1.0 % 10/18/18 06:25 Myelocytes % 1.0 % 10/18/18 06:25 Absolute Neutrophils 6.08 k/cumm (1.2-6.7) 10/19/18 08:10 Absolute Lymphocytes 0.99 k/cumm (1.2-3.4) L 10/19/18 08:10 Absolute Monocytes 0.51 k/cumm (0.11-0.7) 10/19/18 08:10 Absolute Eosinophils 0.05 k/cumm (0.0-0.7) 10/19/18 08:10 Absolute Basophils 0.02 k/cumm (0.0-0.2) 10/19/18 08:10 Differential Comment Manual differential 10/18/18 06:25 RBC Morphology See below 10/18/18 06:25 Polychromasia Present 10/18/18 06:25 Poikilocytosis 1+ 10/18/18 06:25 Anisocytosis 1+ 10/18/18 06:25 PT 11.7 sec (9.3-11.0) H 10/17/18 22:40 INR 1.2 (0.9-1.1) H 10/17/18 22:40 APTT 28.3 sec (21.0-31.4) 10/17/18 22:40 Sample Site Right radial 10/18/18 13:30 pCO2 44 mmHg (34-47) 10/18/18 13:30 pO2 80 mmHg (83-108) L 10/18/18 13:30 O2 Saturation 96 % (94-98) 10/18/18 13:30 ABG pH 7.37 (7.35-7.45) 10/18/18 13:30 ABG HCO3 25 mmol/L (22-28) 10/18/18 13:30 ABG Total CO2 23 mmol/L (22-29) 10/18/18 13:30 ABG Base Excess 0.2 mmol/L (-3-3) 10/18/18 13:30 Oxygen Liter Flow 3 L 10/18/18 13:30 FiO2 Nasal cannula % 10/18/18 13:30 Sodium 137 mmol/L (136-145) 10/19/18 08:10 Potassium 3.4 mmol/L (3.5-5.1) L 10/19/18 08:10 Chloride 99 mmol/L (98-107) 10/19/18 08:10 Carbon Dioxide 29.1 mmol/L (21.0-32.0) 10/19/18 08:10 Anion Gap 8.9 mmol/L (3-11) 10/19/18 08:10 BUN 25 mg/dL (7-18) H 10/19/18 08:10 Creatinine 1.25 mg/dL (0.70-1.30) 10/19/18 08:10 Estimated GFR/1.73 m2 57.44 (mL/min/1.73m2) 10/19/18 08:10 Glucose 110 mg/dL (70-100) H 10/19/18 08:10 Hemoglobin A1c 7.5 % (4.5-6.2) H 10/19/18 08:10 Lactate 1.2 mmol/l (0.6-1.4) 10/18/18 08:50 Calcium 8.7 mg/dL (8.5-10.1) 10/19/18 08:10 Magnesium 2.0 mg/dL (1.8-2.4) 10/19/18 08:10 Total Bilirubin 0.5 mg/dL (0.2-1.0) 10/17/18 22:40 AST 116 U/L (15-37) H 10/18/18 06:25 ALT 72 U/L (12-78) 10/18/18 06:25 Alkaline Phosphatase 479 U/L (46-116) H 10/18/18 06:25 Creatine Kinase 277 U/L (39-308) 10/19/18 08:10 Troponin I 0.02 ng/mL (0.00-0.06) 10/18/18 14:20 C-Reactive Protein 13.65 mg/dL (0.0-0.3) H 10/19/18 08:10 NT-Pro-B Natriuret Pep 1731 pg/mL (-299) H 10/18/18 06:25 Total Protein 6.4 g/dL (6.4-8.2) 10/17/18 22:40 Albumin 2.0 g/dL (3.4-5.0) L 10/17/18 22:40 Triglycerides 62 mg/dL (30-150) 10/18/18 06:25 Total Cholesterol 70 mg/dL (50-200) 10/18/18 06:25 LDL Cholesterol Direct 22 mg/dL (<100) 10/18/18 06:25 HDL Cholesterol 37 mg/dL (40-60) L 10/18/18 06:25 Vitamin B12 723 pg/mL (193-986) 10/19/18 08:10 Folate 2.6 ng/mL (8.6-20.0) L 10/19/18 08:10 TSH 1.62 uIU/mL (0.358-3.74) 10/18/18 06:25 Urine Color Yellow (Yellow) 10/18/18 01:50 Urine Clarity Clear 10/18/18 01:50 Urine pH 5.5 (5-8) 10/18/18 01:50 Ur Specific [place] 1.025 (1.005-1.025) 10/18/18 01:50 Urine Protein 100 mg/dL (Negative) H 10/18/18 01:50 Urine Ketones Trace mg/dL (Negative) H 10/18/18 01:50 Urine Blood Small (Negative) H 10/18/18 01:50 Urine Nitrite Negative (Negative) 10/18/18 01:50 Urine Bilirubin Negative (Negative) 10/18/18 01:50 Urine Urobilinogen 1.0 EU/dL (Up TO 0.2) H 10/18/18 01:50 Ur Leukocyte Esterase Negative (Negative) 10/18/18 01:50 Urine RBC 0-2 (0-2) 10/18/18 01:50 Urine WBC 0-2 HPF (0-5) 10/18/18 01:50 Ur Epithelial Cells Moderate HPF (Negative) 10/18/18 01:50 Urine Crystals Negative HPF (Negative) 10/18/18 01:50 Urine Bacteria Few HPF (Negative) 10/18/18 01:50 Urine Casts 5-10 hyaline LPF (Negative) 10/18/18 01:50 Urine Mucus Negative (Negative) 10/18/18 01:50 Ur Culture Indicated? No 10/18/18 01:50 Urine Glucose Negative mg/dL (Negative) 10/18/18 01:50 Vancomycin Trough 16.3 ug/mL (10.0-20.0) 10/18/18 23:30 Digoxin 0.92 ng/mL (0.90-2.00) 10/18/18 14:20
[2018-10-20] VITALS (19 sets, daily range): BP systolic 98–117; BP diastolic 61–81; PULSE 91–143; RESP 20–29; TEMP 36–36.3; O2SAT 76–94
[2018-10-20] MEDS: Metoprolol 5 MG/5 ML VIAL IVP (06:43)
[2018-10-20 07:29] LABS: HCT 39.2 % (40.0-50.0); HGB 12.6 g/dL (13.5-17.5); Mean Corp. HGB Concentration 32.1 g/dL (32.0-36.0); Mean Corpuscular Volume 90.3 fL (80-95); Mean Platelet Volume 9.5 fL (8.0-11.0); Platelet Count 247 x1000/uL (130-400); RBC 4.34 m/cumm (4.50-6.00); RBC Distribution Width 15.7 % (11.8-14.1); White Blood Cell Count 7.44 k/cumm (4.4-10.8)
[2018-10-20 07:40] LABS: C-Reactive Protein 10.25 mg/dL (0.0-0.3); Magnesium 2.3 mg/dL (1.8-2.4)
[2018-10-20 07:47] LABS: Anion Gap 4.7 mmol/L (3-11); BUN 23 mg/dL (7-18); CO2 31.3 mmol/L (21.0-32.0); CREATININE 1.06 mg/dL (0.70-1.30); Calcium 9.2 mg/dL (8.5-10.1); Chloride 102 mmol/L (98-107); Glucose 83 mg/dL (70-100); Potassium 4.1 mmol/L (3.5-5.1); Sodium 138 mmol/L (136-145)
[2018-10-20] MEDS: Metoprolol CR 100 MG TABCR 200 MG PO (07:58)
[2018-10-20] MEDS: Thiamine 100 MG TAB PO (07:58)
[2018-10-20] MEDS: Digoxin 0.25 MG TAB PO (07:58)
[2018-10-20] MEDS: Multivitamin TAB 1 TAB PO (07:59)
[2018-10-20] MEDS: Folic Acid 1 MG TAB PO (07:59)
[2018-10-20 08:19] LABS: Absolute Eosinophil Count 0.15 k/cumm (0.0-0.7); Absolute Lymphocyte Count 1.04 k/cumm (1.2-3.4); Absolute Monocyte Count 0.52 k/cumm (0.11-0.7); Absolute Neutrophil Count 5.58 k/cumm (1.2-6.7); Atypical Lymphocytes % 3
[2018-10-20 08:20] LABS: Diff Comment Manual Differential; RBC Morphology Normal
--- NOTE | 2018-10-20 08:23 | NUR.NOTE ---
Nursing Note: Wesly Jennings from speech therapy in room at this time.
--- NOTE | 2018-10-20 09:05 | W.SPEECHPG ---
Date of service: 10/20/18 Time of Service: 07:15 Speech Therpy Note Note: SUBJECTIVE The patient (pt) is reclined in bed. He is awake, has the TV on and has family with him. He greets me with good direct eye contact and an intelligible verbal greetin. OBJECTIVE -T: 36.0 - O2 sat: 92% on 2 L via NC - LS: R-expiratory wheezes, L- very diminished - Pt on ABX - Pt has not been eating more than bites of meals but has been tolerating all p.o. intake. Pt continues to show left lingual deviation on protrusion and right tongue base weakness. His family confirms no h/o CVA/TIA. Volitional cough produced more as a throat-clear. No increased dyspnea during conversation or during p.o. intake of medications this visit. Pt reports having minimal appetite and altered taste resulting in poor p.o. intake. He is not interested in eating right now but is willing to take his pills. He states he has not had any intake of chopped meats since I saw him 24 hours ago. Swallowing: - Thin liquid: Good bolus control and posterior oral transit (POT); no ivana signs/symptoms (s/s) aspiration/penetration (A/P); oral clearance 100%; no oral escape. These results are true for both single and consecutive swallows by cup. - Whole pills taken 2 at a time with a Thin liquid wash: Good bolus control & POT; no ivana s/s A/P; oral clearance 100%; no oral escape. Instructed nursing and family in recommendation of upper body positioning at 90 degrees as tolerated with use of pillows prn. Also spent time reviewing the following with family: rationale for doing yesterday's swallow eval, results of swallow eval, recommendations as a result of the eval and ratiionale for these recommendations. ASSESSMENT Pt appears to be tolerating current p.o. consistencies. He denies any swallowing difficulties and feels he has been able to chew his food well. Family concurs and denies having any remaining questions. PLAN 1. Continue current p.o. consistencies (Thin liquids, a Mechanically Altered diet with chopped meats, whole pills with a liquid wash). 2. d/c ST. Pt and family agreeable.
--- NOTE | 2018-10-20 09:40 | W.SPEECHPG ---
Date of service: 10/20/18 Time of Service: 07:15 Speech Therpy Note Note: ADDENDUM TO 10/20/18 PROGRESS NOTE: Correction of Recommnedation #1: Continue Dysphagia Advanced diet, NOT Mechanically Altered diet.
--- NOTE | 2018-10-20 10:31 | OT.INDS ---
Date of service: 10/20/18 Time of Service: 10:31 Occupational Therapy Notes Occupational Therapy Inpatient Discharge Summary Dates of Service: 10/19/18-10/20/18 Date: 10/20/18 Referring Doctor:Bessie Abreu MD OT Orders: Eval and Treat Precautions: Fall, Standard PATIENT PROFILE/ADMITTING DIAGNOSIS: Pt is a 68 year old male who was seen in the ER on 10/17/18 for A-Fib with RVR, sepsis, SOB and fever. Past Medical History: congestive heart failure, atrial fibrillation, hypertension, hyperlipidemia, peripheral vascular disease, sleep apnea, alcohol use. Social History/Home Situation: Pt lives in a mobile home with his . There are 4 steps to enter and 2 now with all the snow. In the past couple weeks he has spent most of his time in a chair. He washes up standing at the sink, he uses a toilet but has a low rise toilet making this difficult. His does all the driving and he is able to get himself dressed (I) at baseline in sitting. Equipment owned/DME: None per pt report. THIS DOCUMENT SERVES A SUMMARY OF CARE, NO SKILLED OT SERVICES PROVIDED TO PATIENT ON THIS DATE SUBJECTIVE: NT OBJECTIVE: ROM: RUE AROM WNL L UE AROM WNL STRENGTH: RUE Shoulder flexion 3+/5, elbow 5/5, sale professional digital marketing is strong and symmetrical LUE Shoulder flexion 3+/5, elbow 5/5, sale professional digital marketing is strong and symmetrical FUNCTIONAL MOBILITY/ADLS: Supine-sit Mod (A) x2 BALANCE: Static sitting Good Dynamic Sitting Good Static Standing NT Dynamic Standing NT ASSESSMENT: Patient is a 68-year-old male referred to occupational therapy services with diagnosis of A-Fib with RVR, sepsis, SOB and fever. Pt was seen on 10/19/18 for OT consultation. Per pts chart, pt is planning to be discharged home today under Hospice Care when medically cleared per MD. Pt was unable to obtain goals and was seen for OT evaluation only. At this time due to anticipated discharge to pts home on Hospice Care, OT will discharge pt from skilled OT services. GOALS Goals not met as pt was seen for OT consult only. 1. Transfers SBA, FWW 2. Dressing In sitting position (I) with UE and LE dressing. 3. Bathing In sitting at sink with FWW (SBA) pt will be able to perform UE bathing. Sitting in chair (I) with LE bathing. 4. Toileting On toilet (I) PLAN OF CARE/TREATMENT PLAN: Discharge pt from skilled OT services as pts reports that pt will be transitioning home today under the care of Hospice. DISCHARGE RECOMMENDATIONS Plan per pts chart is for pt to return home today on Hospice Care. OT recommends a shower bench and grab bars to increase pts safety in bathing routine due to weakness. OT recommends a hospital bed as pt is weak and unable to perform bed mobility limiting him to sleeping in a recliner which he has difficulty getting up from. OT recommends raised toilet seat to increase pts (I) in toileting routine as pt has a low rise toilet which he is unable to safely get off from. TREATMENT TIME/MINUTES/CODES N/A Natalie Shukla OTR/L [facility]
[2018-10-20 10:33] LABS: CEA 3.2 ng/ml; PSA, Diagnostic 0.8 ng/ml (0-4.5)
--- NOTE | 2018-10-20 10:43 | PDOC.CMDIS ---
- If Service Date Differs Date of service: 10/20/18 Time of Service: 10:43 LACE Index Scoring Tool - Questions: Length of Stay (in days): 3 Acuity (Admit via E.D.?): Yes Comorbidities: Congestive Heart Failure, Any Tumor E.D. Visits: 1 - Answers: Total Score: 12 Risk of Readmission: High Risk Care Management Discharge Reason for Hospitalization: Fever, Afib Discharge Plan: Flash is being discharged home to hospice today. He met Hospice today in the room with his family. He states his goal is to be home and not in the hospital. CM faxed orders to coordinator of genetic services and CTI. CM will arrange transportation home. Patient/Family Education Needs: Discharge education, limitations and follow up plan. Services Needed at Discharge: Home Health Care Services, Oxygen Therapy, Transportation
--- NOTE | 2018-10-20 11:07 | CMDISCH_ITS ---
- If Service Date Differs Date of service: 10/20/18 Time of Service: 10:43 LACE Index Scoring Tool - Questions: Length of Stay (in days): 3 Acuity (Admit via E.D.?): Yes Comorbidities: Congestive Heart Failure, Any Tumor E.D. Visits: 1 - Answers: Total Score: 12 Risk of Readmission: High Risk Care Management Discharge Reason for Hospitalization: Fever, Afib Discharge Plan: Flash is being discharged home to hospice today. He met Hospice today in the room with his family. He states his goal is to be home and not in the hospital. CM faxed orders to home health care coordinator and CTI. CM will arrange transportation home. Patient/Family Education Needs: Discharge education, limitations and follow up plan. Services Needed at Discharge: Home Health Care Services, Oxygen Therapy, Transportation
[2018-10-20 11:31] LABS: CA 19-9 24 U/mL (<35)
[2018-10-20 14:29] LABS: Streptococcus Pneumoniae Ag, U Negative (Negative)
[2018-10-20] MEDS: Nystatin POWDER 60 GM JAR TP (14:29)
[2018-10-20] MEDS: Normal Saline Flush 10 ML SYR IVP ×2 (14:49→16:48)
--- NOTE | 2018-10-20 15:01 | CHAPLAIN ---
I met with Flash, and a daughter. I explained my role and offered support. Flash is being discharge from [facility] and will go home with [facility] care. He is looking forward to being home. His said arrangements have been made for hospital bed. Flash seemed to appreciate the prayer shawl I gave him. I also let him know that through Home Health and Hospice he has access to Solution Analyst Tangela Ybarra and recommended her as someone who could be a strong support to any or all of them. Flash' said that Elsa, from [facility], who met with them this morning, also mentioned Tangela to them.
--- NOTE | 2018-10-20 16:08 | W.PM.DS.N ---
Date of service: 10/20/18 Time of Service: 16:08 DS: Diagnosis Discharge Diagnosis (1) Sepsis: Status: Acute (2) CAP (community acquired pneumonia): Status: Acute (3) Cellulitis of left lower extremity: Status: Acute (4) Cellulitis of scrotum: Status: Acute (5) Rapid atrial fibrillation: Status: Acute (6) Systolic and diastolic CHF, acute on chronic: Status: Acute (7) Acute respiratory failure with hypoxia: Status: Acute (8) Liver masses: Status: Acute (9) Weight loss, unintentional: Status: Acute (10) Pulmonary hypertension: Status: Acute (11) Acute kidney injury: Status: Acute (12) Sacral decubitus ulcer, stage II: Status: Acute (13) Ambulatory dysfunction: Status: Acute (14) Alcohol abuse: Status: Chronic (15) Type 2 diabetes mellitus: Status: Acute Discharge Plan Disposition Patient Disposition: HOME Condition: Serious Discharge Details Reason For Visit: FEVER, AFIB Admit Date/Time: 10/18/18 00:35 Admit Provider: Dakota Herrera Attending Provider: Dakota Herrera Primary Care Provider: Susie Dickinson [facility] Course Hospital Course: Mr Webb is a 68 year old male with PMHx of atrial fibrillation, previously on eliquis, as well as chronic systolic CHF/cardiomyopathy of unknown etiology with EF of 45-50%, reported past history of alcohol abuse, who was admitted to [facility] ICU on 10/18/18 for rapid atrial fibrillation in setting of a fever, likely due to cellulitis of his LLE and scrotum. He had been recently declining at home with unintentional weight loss, poor appetite, generalized weakness to the point that he could no longer get up from a chair independently and presented with stage II pressure wounds on his sacrum. He had elevated LFTs on presentation as well, warranting us to get an ultrasound of his RUQ, which demonstrated multiple solid masses in his liver. This is suspicious for metastatic disease. The patient refused CT of his chest/abdomen/pelvis to see what the primary tumor may be. His CA 19-9, PSA, and CEA came back within normal limits. His blood cultures grew Group G strep, which he has previously grown from his LLE wound post trauma in August of 2017. At this time, I have a high suspicion he might have osteomyelitis in his LLE given this finding, elevated CRP, tremendous pain in his LLE and positive blood culture. The patient met with palliative care and made a decision to go home on hospice. He would like to have his infection treated, but is ok with PO antibiotics rather than IV, recognizing they may not be as effective in this case. His heart rate remains uncontrolled, but he is accepting of that as he is going home with hospice. He is no longer on anticoagulation. His pain (which is generalized) is being controlled with oral oxycodone. His family is aware and verbalizes understanding that if they do not have enough assistance at home, they should contact hospice for further directions, including possibly bringing him back to the hospital. He would like to go home today, and home hospice is able to accept him today. His code status is DNR/DNI with a COLST form signed. We wish him and his family well and appreciate the opportunity to help take care of him. Home Meds and New Rx's Prescriptions: New clotrimazole 1 % Cream 1 applic topical TID Qty: 90 RF: 0 multivitamin [Multiple Vitamins] Tablet 1 tab PO DAILY Qty: 30 RF: 0 diltiazem HCl 120 mg Capsule,Extended Release 24hr 120 mg PO DAILY Qty: 30 RF: 0 folic acid 1 mg Tablet 1 mg PO DAILY Qty: 30 RF: 0 furosemide 20 mg Tablet 20 mg PO DAILY Qty: 30 RF: 0 nystatin 100,000 unit/gram Powder 1 applic topical TID Qty: 30 RF: 0 oxycodone 5 mg Tablet 5 mg PO Q4H PRN PRN (Reason: pain) Qty: 30 RF: 0 zolpidem 5 mg Tablet 5 mg PO HS PRN MAY REPEAT X1 PRNQty: 5 RF: 0 thiamine mononitrate (vit B1) [Vitamin B-1 (mononitrate)] 100 mg Tablet 100 mg PO DAILY Qty: 30 RF: 0 cefuroxime axetil 500 mg tablet 500 mg PO Q12H 42 Days Qty: 84 RF: 0 Continued Metoprolol Succinate 200 MG TAB.ER.24H 200 mg PO DAILY Qty: 90 RF: 4 digoxin 250 mcg Tablet 0.25 mg PO DAILY RF: 0 Discontinued torsemide 20 mg tablet 20 mg PO DAILY RF: 0 lisinopril 5 mg tablet 5 mg PO DAILY RF: 0 rosuvastatin [Crestor] 40 mg tablet 40 mg PO DAILY Qty: 90 RF: 4 Eliquis 5 MG tablet 5 mg PO BID Qty: 180 RF: 4 Discharge Instructions Instructions: Heart Failure (DC), Atrial Fibrillation (DC), Cellulitis (DC), Liver Cancer (DC), Sepsis (GEN), Bacteremia (DC) Additional Instructions: Finish your antibiotics as prescribed. Please, follow up with home hospice for any symptom management or if you feel like the care that can be provided at home is insufficient. Referrals: Barbi Ulrich MD [ [facility] STAFF PHYSICIAN] - Activity:: Activity as Tolerated Equipment/Supplies:: No Equipment Needed Diet:: As Tolerated Discharge Orders Discharge Orders: Discharge Order (Routine); Ordered 10/20/18 Ordered By: Bessie Abreu Exam Narrative Exam Narrative: General: Obese middle-aged male, ill appearing and mildly tachypneic, A&Ox3 HEENT: EOMI, MMM Heart: Irregularly irregular rhythm, tachycardic Lungs: Very diminished breath sounds B GI: abdomen is soft, minimally diffusely tender, nondistended Extremities: LLE more edematous and erythematous than the R , feels warm DS: Data Vitals/I&O Vitals and I&O: Vital Signs Temperature 36.0 C L 10/20/18 08:02 Temperature Source Temporal Artery Scan 10/20/18 08:02 Pulse 106 H 10/20/18 11:40 Pulse Rhythm Irregular 10/20/18 12:48 Pulse 126 H 10/20/18 14:00 Respiratory Rate 24 10/20/18 14:00 Respiratory Effort 10/20/18 12:48 Respiratory Depth Normal 10/20/18 12:48 Respiratory Pattern Normal 10/20/18 12:48 Blood Pressure 111/61 10/20/18 11:40 Blood Pressure Mean 73 10/20/18 11:40 Blood Pressure Position Supine 10/19/18 07:40 Pulse Oximetry 92 L 10/20/18 11:40 Oxygen Delivery Method Nasal Cannula 10/20/18 05:10 Oxygen Flow Rate 3 10/20/18 05:10 Pain Level 0 10/19/18 15:20 Comment 10/20/18 11:40 Intake & Output 10/19/18 10/20/18 10/20/18 23:59 11:59 23:59 Intake Total 1391 / 2201 150 / 390 240 / 390 Output Total 325 / 775 750 / 750 Balance 1066 / 1426 -600 / -360 240 / -360 Intake: IV 351 / 661 Oral 1040 / 1540 150 / 390 240 / 390 Output: Urine 325 / 775 750 / 750 Other: Urine Color Light Lorraine Yellow Urine Appearance Cloudy Cloudy Completed studies during hospitalization [Text1]: CXR 10/17/18: Large right lower lobe opacity. Differential considerations include atelectasis, pneumonia or effusion. Venous doppler BLE's 10/18/18: No evidence of a deep venous thrombus in either lower extremity. US RUQ: 1. Enlarged liver. 2. Multiple hepatic masses. CT scan of the abdomen is recommended with contrast for further evaluation. 3. Right pleural effusion. Labs on day of discharge: Labs from last 24 hours 10/20/18 10/20/18 10/20/18 11:00 06:25 06:25 WBC 7.44 RBC 4.34 L Hgb 12.6 L Hct 39.2 L MCV 90.3 MCH 29.0 MCHC 32.1 RDW 15.7 H Plt Count 247 MPV 9.5 Immature Gran % See Differential Neutrophils % 70.0 Band Neutrophils % 5.0 Lymphocytes % 11.0 Atypical Lymphs % 3 Monocytes % 7.0 Eosinophils % 2.0 Basophils % 0.0 Metamyelocytes % 1.0 Myelocytes % 1.0 Absolute Neutrophils 5.58 Absolute Lymphocytes 1.04 L Absolute Monocytes 0.52 Absolute Eosinophils 0.15 Absolute Basophils 0.00 Differential Comment Manual differential RBC Morphology Normal Sodium 138 Potassium 4.1 D Chloride 102 Carbon Dioxide 31.3 Anion Gap 4.7 BUN 23 H Creatinine 1.06 Estimated GFR/1.73 m2 >= 60.00 Glucose 83 Calcium 9.2 Magnesium C-Reactive Protein Carcinoembryonic Ag CA 19-9 Antigen Prostate Specific Ag Vancomycin Trough Cancelled Ur Strep pneumoniae Ag 10/20/18 10/19/18 10/18/18 06:25 08:10 01:50 WBC RBC Hgb Hct MCV MCH MCHC RDW Plt Count MPV Immature Gran % Neutrophils % Band Neutrophils % Lymphocytes % Atypical Lymphs % Monocytes % Eosinophils % Basophils % Metamyelocytes % Myelocytes % Absolute Neutrophils Absolute Lymphocytes Absolute Monocytes Absolute Eosinophils Absolute Basophils Differential Comment RBC Morphology Sodium Potassium Chloride Carbon Dioxide Anion Gap BUN Creatinine Estimated GFR/1.73 m2 Glucose Calcium Magnesium 2.3 C-Reactive Protein 10.25 H Carcinoembryonic Ag 3.2 CA 19-9 Antigen 24 Prostate Specific Ag 0.8 Vancomycin Trough Ur Strep pneumoniae Ag Negative Preliminary micro results at discharge 10/17/18 23:15 Blood Culture - Preliminary Blood Group G Streptococcus 10/19/18 08:35 Blood Culture - Preliminary Blood NO GROWTH 24 HOURS 10/19/18 08:10 Blood Culture - Preliminary Blood NO GROWTH 24 HOURS 10/17/18 22:40 Blood Culture - Preliminary Blood NO GROWTH 48 HOURS [facility] Medical History Atrial fibrillation (Chronic) Obesity (BMI 30-39.9) (Chronic) Alcohol abuse (Chronic) Congestive heart failure (Acute) Hypertension (Chronic) Social History Smoking and Tabacco status: Former Tobacco Use
[2018-10-20] MEDS: Furosemide 20 MG/2 ML VIAL IVP (16:48)
[2018-10-20] MEDS: LORazepam 1 MG TAB PO/SL (16:54)
--- NOTE | 2018-10-22 22:15 | W.PALLCONSUL ---
Date of service: 10/18/18 History of Present Illness Chief Complaint: newly discovered hepatic masses, likely cancer Narrative: Darin and his had called [facility] for a consult to be done earlier this week. The head hospice nurse asked that I review Darin's recent medical records from Dr Delacruz, kick press setter. There was nothing in his recent cardiac work-up that would clearly clarify Darin for hospice. Therefore, I suggested to the Hospice team that I see Flash as an outpatient palliative care patient and evaluate him for possible terminal illness. However, in the interim, Darin's health continued to decline. The day after the cancelled hospice consult, his brought him to the [facility] ER and he was admitted to the ICU with sepsis, bacteremia, CAP (?), weight loss of 40 lbs over 2 months, severe weakness, bilateral pressure ulcers on his buttocks. His explains that she needs help. She feels she's watching her in front of her eyes. I was asked to see him after Dr Abreu ordered an abdominal ultrasound that showed multiple hepatic masses. Darin didn't want to have a CT scan; he said he would think about it again overnight and MAY allow a CT scan in the am. He'd had one in the past and he didn't want to do that again. He said that IF he has cancer, he wouldn't want treatment. He wouldn't want a biopsy. He wouldn't want chemo or radiation. He would want to be kept comfortable. He says his biggest problem is that he has unrelieved pain, all over his body, not in one particular area and severe weakness. He can't even turn over in bed. He wants to make sure that his pain is treated. Consults Consult date: 10/18/18 Requesting physician: Bessie Abreu Assessment and Plan (1) Palliative care patient: Current visit: No Status: Acute Both patient and believe that Darin has been seriously, if not terminally ill, for several months. They would like to get help keeping him comfortable. Darin doesn't want to stay in hospital long. He is CONSIDERING (NOT PROMISING) to get a CT scan tomorrow to help us pinpoint IF he has a cancer as he does have multiple liver masses on abdominal u/s consistent with metastases. He did agree to allow Dr Abreu to order PSA, CEA, and CA1-19, tumor markers for prostate, colon and pancreatic cancers. We explained that they would not likely be back to the end of the week, or maybe next week. He is clear that he would NOT want to have chemo or radiation. Therefore, he doesn't see the need for a biopsy. He would only get the CT scan if the information he received helped him or his family plan. (2) Counseling regarding advance directives and goals of care: Current visit: No Status: Acute reports that Darin has always tried to avoid doctors. He has had 2 serious illnesses, one in 1990 when he was intubated and then trached when he was sick with 'the swine flu. He has the trache scar to show for it. He also had what sounded like Lyme Encephalitis. His says he was very confused and weak and hospitalized due to confusion after getting Lyme. Darin doesn't want ANY heroic interventions. He doesn't want CPR or shocks. He doesn't want to be put back on a ventilator. Dr Abreu noted his code status as DNR/DNI. Will do a COLST form with him tomorrow. He would like to be discharged tomorrow if possible. Dr Abreu advised that he will need to have daily antibiotics for his bacteremia. He is not sure that he wants them. Will address again tomorrow. (3) Liver masses: Start date: 10/18/18 Current visit: No Status: Chronic presumed to be metastases from unknown primary refusing biopsy considering CT scan to see if source could be found Review of Systems Constitutional Reports body ache(s), Reports daytime sleepiness, Reports difficulty sleeping, Reports fatigue, Reports fever(s), Reports lethargy, Reports malaise, Reports night sweats, Reports poor appetite, Reports weakness and Reports weight loss Eyes Reports dry eyes and Reports requires corrective lenses ENT Reports dizziness, Reports hearing loss and Reports disequilibrium Cardiovascular Reports chest pain with activity, Reports rapid heart rate, Reports edema, Reports leg ulcers, Reports palpitations, Reports dyspnea, Reports dyspnea on exertion and Reports paroxysmal nocturnal dyspnea Respiratory Reports dyspnea and Reports dyspnea on exertion Gastrointestinal Reports abdominal pain, Reports bloating, Reports early satiety, Reports fecal incontinence and Reports nausea Genitourinary Reports difficulty urinating and Reports urinary incontinence Musculoskeletal Reports abnormal gait, Reports back pain, Reports myalgias, Reports atrophy, Reports arthralgias, Reports muscle weakness and Reports stiffness Integumentary/Breasts Reports skin pain and Reports skin ulcer Neurologic Reports abnormal gait, Reports confusion, Reports dizziness, Reports disequilibrium and Reports weakness Psychiatric Reports change in appetite, Reports confusion, Reports difficulty concentrating and Reports hopelessness Endocrine Reports fatigue and Reports palpitations Hematologic/Lymphatic Reports easy bruising [facility] Medical History Atrial fibrillation (Chronic) Obesity (BMI 30-39.9) (Chronic) Alcohol abuse (Chronic) Congestive heart failure (Acute) Hypertension (Chronic) Family History Son No problems noted. Daughter No problems noted. Daughter No problems noted. 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 leisure activities: hunting diet: other well-balanced diet: rarely or never caffeine: Yes high-fat food intake: 2 times daily daily servings fruits/ve-1 daily servings of milk/calcium: 0-1 eating out: rarely or never reads food labels: seldom or never during the past year weight has: decreased > 10 lbs what type of physical activity do you participate in: none Smoking and Tabacco status: Former Tobacco Use alcohol intake: former details: used to drink to excess special kayla needs: No What is your relationship status?: How often do you talk on the phone with friends or family?: once per week How often do you get together with friends or relatives?: once per week Panel score (0-1 are the most socially isolated patients): 1 Exam Const General: cooperative, in distress, anxious and ill appearing Nutritional Appearance: obese Orientation: alert, awake, oriented to person and oriented to place [facility] Head: normocephalic and atraumatic Ears: hearing grossly impaired General nose exam: external nose normal Face and sinus: dry mucous membranes Eyes Conjunctivae: conjunctivae normal Sclera: sclerae normal Pupils: PERRL Neck Neck: no lymphadenopathy, no JVD and other (obvious former site of tracheostomy (1990)) Resp Effort & Inspection: normal respiratory effort and able to speak in complete sentences Auscultation: crackles and diminished lung sounds Cardio Jugular venous pressure: no JVD Rate: tachycardic Rhythm: abnormal rhythm irregularly irregular Heart Sounds: S1 normal and S2 normal GI Inspection: distended and obesity Palpation: firm and tender Auscultation: normal bowel sounds Skin General skin exam: dry skin, pallor and scars Wounds: wounds noted (pressure ulcers x 2) Hair: male pattern alopecia Neuro General: alert, awake and moves all extremities Cognition: normal cognition (though making unusual choices; deciding no w/u or evaluation) Speech: speech normal Extrem General: edema, muscle atrophy and pedal edema Psych Appearance: grossly normal Mental Status: mental status grossly normal Speech and Movement: delayed speech and slowed movement Mood: anxious mood Affect: labile affect Attitude: cooperative Thought Process: impoverished Thought Content: phobias (hard to tell if afraid of further testing or if this is consistent ) Insight: fair Judgment: fair Results Last Vital Signs Temp 97.3 F L 10/20/18 17:15 Pulse 92 H 10/20/18 16:52 Resp 29 H 10/20/18 16:52 BP 117/81 10/20/18 16:52 Pulse Ox 93 L 10/20/18 17:15 Labs : 10/20/18 06:25 10/20/18 06:25
--- NOTE | 2018-10-22 22:46 | PCNE_ITS ---
Date of service: 10/18/18 History of Present Illness Chief Complaint: newly discovered hepatic masses, likely cancer Narrative: Darin and his had called [facility] for a consult to be done earlier this week. The head hospice nurse asked that I review Darin's recent medical records from Dr Delacruz, electric shipyard operator. There was nothing in his recent cardiac work-up that would clearly clarify Darin for hospice. Therefore, I suggested to the Hospice team that I see Flash as an outpatient palliative care patient and evaluate him for possible terminal illness. However, in the interim, Darin's health continued to decline. The day after the cancelled hospice consult, his brought him to the [facility] ER and he was admitted to the ICU with sepsis, bacteremia, CAP (?), weight loss of 40 lbs over 2 months, severe weakness, bilateral pressure ulcers on his buttocks. His explains that she needs help. She feels she's watching her in front of her eyes. I was asked to see him after Dr Abreu ordered an abdominal ultrasound that showed multiple hepatic masses. Darin didn't want to have a CT scan; he said he would think about it again overnight and MAY allow a CT scan in the am. He'd had one in the past and he didn't want to do that again. He said that IF he has cancer, he wouldn't want treatment. He wouldn't want a biopsy. He wouldn't want chemo or radiation. He would want to be kept comfortable. He says his biggest problem is that he has unrelieved pain, all over his body, not in one particular area and severe weakness. He can't even turn over in bed. He wants to make sure that his pain is treated. Consults Consult date: 10/18/18 Requesting physician: Bessie Abreu Assessment and Plan (1) Palliative care patient: Current visit: No Status: Acute Both patient and believe that Darin has been seriously, if not terminally ill, for several months. They would like to get help keeping him comfortable. Darin doesn't want to stay in hospital long. He is CONSIDERING (NOT PROMISING) to get a CT scan tomorrow to help us pinpoint IF he has a cancer as he does have multiple liver masses on abdominal u/s consistent with metastases. He did agree to allow Dr Abreu to order PSA, CEA, and CA1-19, tumor markers for prostate, colon and pancreatic cancers. We explained that they would not likely be back to the end of the week, or maybe next week. He is clear that he would NOT want to have chemo or radiation. Therefore, he doesn't see the need for a biopsy. He would only get the CT scan if the information he received helped him or his family plan. (2) Counseling regarding advance directives and goals of care: Current visit: No Status: Acute reports that Darin has always tried to avoid doctors. He has had 2 serious illnesses, one in 1990 when he was intubated and then trached when he was sick with 'the swine flu. He has the trache scar to show for it. He also had what sounded like Lyme Encephalitis. His says he was very confused and weak and hospitalized due to confusion after getting Lyme. Darin doesn't want ANY heroic interventions. He doesn't want CPR or shocks. He doesn't want to be put back on a ventilator. Dr Abreu noted his code status as DNR/DNI. Will do a COLST form with him tomorrow. He would like to be discharged tomorrow if possible. Dr Abreu advised that he will need to have daily antibiotics for his bacteremia. He is not sure that he wants them. Will address again tomorrow. (3) Liver masses: Start date: 10/18/18 Current visit: No Status: Chronic presumed to be metastases from unknown primary refusing biopsy considering CT scan to see if source could be found Review of Systems Constitutional Reports body ache(s), Reports daytime sleepiness, Reports difficulty sleeping, Reports fatigue, Reports fever(s), Reports lethargy, Reports malaise, Reports night sweats, Reports poor appetite, Reports weakness and Reports weight loss Eyes Reports dry eyes and Reports requires corrective lenses ENT Reports dizziness, Reports hearing loss and Reports disequilibrium Cardiovascular Reports chest pain with activity, Reports rapid heart rate, Reports edema, Reports leg ulcers, Reports palpitations, Reports dyspnea, Reports dyspnea on exertion and Reports paroxysmal nocturnal dyspnea Respiratory Reports dyspnea and Reports dyspnea on exertion Gastrointestinal Reports abdominal pain, Reports bloating, Reports early satiety, Reports fecal incontinence and Reports nausea Genitourinary Reports difficulty urinating and Reports urinary incontinence Musculoskeletal Reports abnormal gait, Reports back pain, Reports myalgias, Reports atrophy, Reports arthralgias, Reports muscle weakness and Reports stiffness Integumentary/Breasts Reports skin pain and Reports skin ulcer Neurologic Reports abnormal gait, Reports confusion, Reports dizziness, Reports disequilibrium and Reports weakness Psychiatric Reports change in appetite, Reports confusion, Reports difficulty concentrating and Reports hopelessness Endocrine Reports fatigue and Reports palpitations Hematologic/Lymphatic Reports easy bruising [facility] Medical History Atrial fibrillation (Chronic) Obesity (BMI 30-39.9) (Chronic) Alcohol abuse (Chronic) Congestive heart failure (Acute) Hypertension (Chronic) Family History Son No problems noted. Daughter No problems noted. Daughter No problems noted. 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 leisure activities: hunting diet: other well-balanced diet: rarely or never caffeine: Yes high-fat food intake: 2 times daily daily servings fruits/ve-1 daily servings of milk/calcium: 0-1 eating out: rarely or never reads food labels: seldom or never during the past year weight has: decreased > 10 lbs what type of physical activity do you participate in: none Smoking and Tabacco status: Former Tobacco Use alcohol intake: former details: used to drink to excess special kayla needs: No What is your relationship status?: How often do you talk on the phone with friends or family?: once per week How often do you get together with friends or relatives?: once per week Panel score (0-1 are the most socially isolated patients): 1 Exam Const General: cooperative, in distress, anxious and ill appearing Nutritional Appearance: obese Orientation: alert, awake, oriented to person and oriented to place [facility] Head: normocephalic and atraumatic Ears: hearing grossly impaired General nose exam: external nose normal Face and sinus: dry mucous membranes Eyes Conjunctivae: conjunctivae normal Sclera: sclerae normal Pupils: PERRL Neck Neck: no lymphadenopathy, no JVD and other (obvious former site of tracheostomy (1990)) Resp Effort & Inspection: normal respiratory effort and able to speak in complete sentences Auscultation: crackles and diminished lung sounds Cardio Jugular venous pressure: no JVD Rate: tachycardic Rhythm: abnormal rhythm irregularly irregular Heart Sounds: S1 normal and S2 normal GI Inspection: distended and obesity Palpation: firm and tender Auscultation: normal bowel sounds Skin General skin exam: dry skin, pallor and scars Wounds: wounds noted (pressure ulcers x 2) Hair: male pattern alopecia Neuro General: alert, awake and moves all extremities Cognition: normal cognition (though making unusual choices; deciding no w/u or evaluation) Speech: speech normal Extrem General: edema, muscle atrophy and pedal edema Psych Appearance: grossly normal Mental Status: mental status grossly normal Speech and Movement: delayed speech and slowed movement Mood: anxious mood Affect: labile affect Attitude: cooperative Thought Process: impoverished Thought Content: phobias (hard to tell if afraid of further testing or if this is consistent ) Insight: fair Judgment: fair Results Last Vital Signs Temp 97.3 F L 10/20/18 17:15 Pulse 92 H 10/20/18 16:52 Resp 29 H 10/20/18 16:52 BP 117/81 10/20/18 16:52 Pulse Ox 93 L 10/20/18 17:15 Labs : 10/20/18 06:25 10/20/18 06:25
--- NOTE | 2018-10-22 23:02 | PCPN_ITS ---
Date of service: 10/19/18 Assessment and Plan (1) Counseling regarding advance directives and goals of care: Current visit: No Status: Acute filled out COLST form minimal interventions, only those directed at his comfort hospice consult scheduled for 3/8 am to be admitted later that day question about whether he will continue on IV antibiotics recommended by Dr Abreu (2) Palliative care patient: Current visit: No Status: Acute will continue to follow him once he transitions to hospice expect will do home visit over the weekend or early next week (3) Weight loss, unintentional: Current visit: No Status: Acute weight loss, loss of appetite, night sweats, severe weakness all consistent with PROBABLE malignancy explained that we do not fully know he has cancer he says even if he does, he doesn't want treatment and if he has something else that makes him feel as bad as he does, he doesn't want to live anyway (4) Liver masses: Current visit: No Status: Chronic likely due to metastatic disease Subjective Patient reports: feels better, still having pain, pain is less and shortness of breath Interval history since last seen: All three children are present for exam and family meeting. They drove up from [place]. They confirm that their father has been very clear that he would not want to pursue treatment for cancer if he were to be diagnosed with it. Darin has decided overnight that he does NOT want a CT scan. He asked that we send away the oral contrast needed for his imaging. He wants to go home as soon as Dr Abreu will release him. He wants hospice. Dr Abreu put in an order for a hospice consult to be done 3/8 am with planned discharge in the afternoon. He doesn't want to have a workup to determine IF he has cancer. I explained that we could not know for sure without a biopsy, and I explained that some cancers can be treated now. He again repeated that he does not want chemo or radiation or even immunotherapy pills. He doesn't want to spend the rest of his life being a patient. He wants to go home, be kept comfortable. He asked for my promise that I would ensure he was not in pain at the end of his life. I said I thought we could keep him comfortable at home, but that we might need to move to a pump as he got closer to dying. He doesn't seem at all afraid at the prospect of him having a terminal illness. He seems very supported and connected to his children, and his . Exam Const General: cooperative and ill appearing Nutritional Appearance: obese Orientation: alert, awake and oriented x3 HENMT Head: normocephalic and atraumatic Ears: hearing grossly impaired General nose exam: external nose normal Face and sinus: scar (neck from former tracheostomy) and dry mucous membranes Eyes General: appearance normal, both eyes and all related structures Conjunctivae: conjunctivae normal Sclera: sclerae normal Neck Neck: no lymphadenopathy and no JVD Resp Effort & Inspection: normal respiratory effort and able to speak in complete sentences Auscultation: clear to auscultation bilaterally and diminished lung sounds Cardio Jugular venous pressure: no JVD Rate: tachycardic Rhythm: abnormal rhythm irregularly irregular Heart Sounds: S1 normal and S2 normal GI Inspection: distended Palpation: firm and tender Auscultation: hypoactive bowel sounds Skin General skin exam: dry skin and scars Wounds: wounds noted Hair: male pattern alopecia Neuro General: alert, awake and oriented x3 Cognition: normal cognition Speech: speech normal Extrem General: edema and muscle atrophy Psych Appearance: grossly normal Mental Status: mental status grossly normal Speech and Movement: restless Mood: dysthymic mood Affect: labile affect Attitude: cooperative Thought Process: normal Thought Content: normal Insight: insight good Judgment: judgment good Other: seems calmer today, with chldren present and mind clear about hospice, no CT scan not open to any discussion of scanning, biopsy, etc. tumor markers not back yet, of course Objective Objective Clinical Data: Vital Signs Temperature 97.3 F L 10/20/18 17:15 Temperature Source Temporal Artery Scan 10/20/18 17:15 Pulse 92 H 10/20/18 16:52 Pulse Rhythm Irregular 10/20/18 12:48 Pulse 121 H 10/20/18 16:52 Respiratory Rate 29 H 10/20/18 16:52 Respiratory Effort Accessory Muscle Use 10/20/18 17:03 Respiratory Depth Shallow 10/20/18 17:03 Respiratory Pattern Tachypnea 10/20/18 17:03 Blood Pressure 117/81 10/20/18 16:52 Blood Pressure Mean 87 10/20/18 16:52 Blood Pressure Position Supine 10/19/18 07:40 Pulse Oximetry 93 L 10/20/18 17:15 Oxygen Delivery Method Nasal Cannula 10/20/18 17:15 Oxygen Flow Rate 2 10/20/18 17:15 Pain Level 0 10/20/18 18:25 Comment 10/20/18 11:40 Laboratory Results WBC 7.44 k/cumm (4.4-10.8) 10/20/18 06:25 RBC 4.34 m/cumm (4.50-6.00) L 10/20/18 06:25 Hgb 12.6 g/dL (13.5-17.5) L 10/20/18 06:25 Hct 39.2 % (40.0-50.0) L 10/20/18 06:25 MCV 90.3 fL (80-95) 10/20/18 06:25 MCH 29.0 pg (27.0-33.0) 10/20/18 06:25 MCHC 32.1 g/dL (32.0-36.0) 10/20/18 06:25 RDW 15.7 % (11.8-14.1) H 10/20/18 06:25 Plt Count 247 x1000/uL (130-400) 10/20/18 06:25 MPV 9.5 fL (8.0-11.0) 10/20/18 06:25 Immature Gran % See Differential 10/20/18 06:25 Neutrophils % 70.0 10/20/18 06:25 Band Neutrophils % 5.0 % 10/20/18 06:25 Lymphocytes % 11.0 10/20/18 06:25 Atypical Lymphs % 3 10/20/18 06:25 Monocytes % 7.0 10/20/18 06:25 Eosinophils % 2.0 10/20/18 06:25 Basophils % 0.0 10/20/18 06:25 Metamyelocytes % 1.0 % 10/20/18 06:25 Myelocytes % 1.0 % 10/20/18 06:25 Absolute Neutrophils 5.58 k/cumm (1.2-6.7) 10/20/18 06:25 Absolute Lymphocytes 1.04 k/cumm (1.2-3.4) L 10/20/18 06:25 Absolute Monocytes 0.52 k/cumm (0.11-0.7) 10/20/18 06:25 Absolute Eosinophils 0.15 k/cumm (0.0-0.7) 10/20/18 06:25 Absolute Basophils 0.00 k/cumm (0.0-0.2) 10/20/18 06:25 Differential Comment Manual differential 10/20/18 06:25 RBC Morphology Normal 10/20/18 06:25 Polychromasia Present 10/18/18 06:25 Poikilocytosis 1+ 10/18/18 06:25 Anisocytosis 1+ 10/18/18 06:25 PT 11.7 sec (9.3-11.0) H 10/17/18 22:40 INR 1.2 (0.9-1.1) H 10/17/18 22:40 APTT 28.3 sec (21.0-31.4) 10/17/18 22:40 Sample Site Right radial 10/18/18 13:30 pCO2 44 mmHg (34-47) 10/18/18 13:30 pO2 80 mmHg (83-108) L 10/18/18 13:30 O2 Saturation 96 % (94-98) 10/18/18 13:30 ABG pH 7.37 (7.35-7.45) 10/18/18 13:30 ABG HCO3 25 mmol/L (22-28) 10/18/18 13:30 ABG Total CO2 23 mmol/L (22-29) 10/18/18 13:30 ABG Base Excess 0.2 mmol/L (-3-3) 10/18/18 13:30 Oxygen Liter Flow 3 L 10/18/18 13:30 FiO2 Nasal cannula % 10/18/18 13:30 Sodium 138 mmol/L (136-145) 10/20/18 06:25 Potassium 4.1 mmol/L (3.5-5.1) D 10/20/18 06:25 Chloride 102 mmol/L (98-107) 10/20/18 06:25 Carbon Dioxide 31.3 mmol/L (21.0-32.0) 10/20/18 06:25 Anion Gap 4.7 mmol/L (3-11) 10/20/18 06:25 BUN 23 mg/dL (7-18) H 10/20/18 06:25 Creatinine 1.06 mg/dL (0.70-1.30) 10/20/18 06:25 Estimated GFR/1.73 m2 >= 60.00 (mL/min/1.73m2) 10/20/18 06:25 Glucose 83 mg/dL (70-100) 10/20/18 06:25 Hemoglobin A1c 7.5 % (4.5-6.2) H 10/19/18 08:10 Lactate 1.2 mmol/l (0.6-1.4) 10/18/18 08:50 Calcium 9.2 mg/dL (8.5-10.1) 10/20/18 06:25 Magnesium 2.3 mg/dL (1.8-2.4) 10/20/18 06:25 Total Bilirubin 0.5 mg/dL (0.2-1.0) 10/17/18 22:40 AST 116 U/L (15-37) H 10/18/18 06:25 ALT 72 U/L (12-78) 10/18/18 06:25 Alkaline Phosphatase 479 U/L (46-116) H 10/18/18 06:25 Creatine Kinase 277 U/L (39-308) 10/19/18 08:10 Troponin I 0.02 ng/mL (0.00-0.06) 10/18/18 14:20 C-Reactive Protein 10.25 mg/dL (0.0-0.3) H 10/20/18 06:25 NT-Pro-B Natriuret Pep 1731 pg/mL (-299) H 10/18/18 06:25 Total Protein 6.4 g/dL (6.4-8.2) 10/17/18 22:40 Albumin 2.0 g/dL (3.4-5.0) L 10/17/18 22:40 Triglycerides 62 mg/dL (30-150) 10/18/18 06:25 Total Cholesterol 70 mg/dL (50-200) 10/18/18 06:25 LDL Cholesterol Direct 22 mg/dL (<100) 10/18/18 06:25 HDL Cholesterol 37 mg/dL (40-60) L 10/18/18 06:25 Carcinoembryonic Ag 3.2 ng/ml 10/19/18 08:10 CA 19-9 Antigen 24 U/mL (<35) 10/19/18 08:10 Prostate Specific Ag 0.8 ng/ml (0-4.5) 10/19/18 08:10 Vitamin B12 723 pg/mL (193-986) 10/19/18 08:10 Folate 2.6 ng/mL (8.6-20.0) L 10/19/18 08:10 TSH 1.62 uIU/mL (0.358-3.74) 10/18/18 06:25 Urine Color Yellow (Yellow) 10/18/18 01:50 Urine Clarity Clear 10/18/18 01:50 Urine pH 5.5 (5-8) 10/18/18 01:50 Ur Specific [place] 1.025 (1.005-1.025) 10/18/18 01:50 Urine Protein 100 mg/dL (Negative) H 10/18/18 01:50 Urine Ketones Trace mg/dL (Negative) H 10/18/18 01:50 Urine Blood Small (Negative) H 10/18/18 01:50 Urine Nitrite Negative (Negative) 10/18/18 01:50 Urine Bilirubin Negative (Negative) 10/18/18 01:50 Urine Urobilinogen 1.0 EU/dL (Up TO 0.2) H 10/18/18 01:50 Ur Leukocyte Esterase Negative (Negative) 10/18/18 01:50 Urine RBC 0-2 (0-2) 10/18/18 01:50 Urine WBC 0-2 HPF (0-5) 10/18/18 01:50 Ur Epithelial Cells Moderate HPF (Negative) 10/18/18 01:50 Urine Crystals Negative HPF (Negative) 10/18/18 01:50 Urine Bacteria Few HPF (Negative) 10/18/18 01:50 Urine Casts 5-10 hyaline LPF (Negative) 10/18/18 01:50 Urine Mucus Negative (Negative) 10/18/18 01:50 Ur Culture Indicated? No 10/18/18 01:50 Urine Glucose Negative mg/dL (Negative) 10/18/18 01:50 Vancomycin Trough 16.3 ug/mL (10.0-20.0) 10/18/18 23:30 Digoxin 0.92 ng/mL (0.90-2.00) 10/18/18 14:20 Ur Strep pneumoniae Ag Negative (Negative) 10/18/18 01:50
--- NOTE | 2018-10-23 15:44 | INDS_ITS ---
Date of service: 10/23/18 PT Notes Inpatient Physical Therapy Discharge Summary Dates: 10/23/2018 Dates of Service: 10/19/2018 only Referring Doctor: Dr. Bessie Abreu PT Orders: PT CONSULT: Eval and treat Precautions: Fall. Standard. Low activity tolerance. Patient Profile/Admitting Diagnosis: Patient is a 68-year-old male patient admitted on 10/18/2018 with with fever, sepsis, RVR and SOB. PMHX: Congestive heart failure, atrial fibrillation, hypertension, hyperlipidemia, peripheral vascular disease, sleep apnea, alcohol use. Social History/Home Situation: Pt lives in a mobile home with his , has 4 steps to enter with rails on both sides. Both patient and state that he is able to tolerate short distances from bedroom to bathroom using a standard walker but has had shortness of breath for several weeks now and has declined since. He states that he is able to sit up on the edge of the bed prior to admission. Equipment Owned/DME: Standard walker. Coordination with case management and occupational therapy done regarding the need for a hospital bed and a bedside commode. This is a summary of care provided by physical therapy team on 10/19/2018. Subjective: Patient states that he feels generally weak and short of breath. He states that his left lower extremity is weaker than the right. He is agreeable to a physical therapy evaluation. Objective: General Observation: Patient seen lying in bed conversing with . IV line in the left UE. Smith catheter in place. No oxygen cannula on. Mental Status: Alert and oriented x3 Pain: Left foot and leg with moderate pain. Vital Signs: Blood pressure=96/66 mmHg, Heart uprf=479 bpm. ROM: Right Upper Extremity: WFL Left Upper Extremity: WFL Right Lower Extremity: WFL Left Lower Extremity: Patient was able to to slide heel upward and bend the knee although with moderate discomfort on the foot and posterior leg. Hip flexion less than 90 degrees. Knee flexion approximately 30-40 degrees actively. Strength: Right Upper Extremity: Not tested. See OT evaluation. Left Upper Extremity: Not tested. See OT evaluation. Right Lower Extremity: Hip flexors 4/5. Knee extensors 4/5. Knee flexors 4+/5. Ankle ankle dorsiflexors/plantar flexors 4+/5. Left Lower Extremity: Hip flexors 3-/5. Knee extensors 3/5. Knee flexors 3+/5. Ankle dorsiflexors/plantar flexors 4-/5. Bed Mobility/Transfers: Supine to sit: Max A, HOB elevated about 30 degrees. Nurse holding holding onto patient's hand for support PT supporting left heel. OT standby assist for safety. Maximum assist to scoot forward in bed. Sit to supine:Max A, HOB elevated about 30 degrees. Sit to stand: Max A, using FWW, both hands needing to push for support. Stand to sit:Max A, using FWW, both hands needing to push for support and to control descent. Gait: Deferred gait activity today due to increased heart rate and fatigue. Patient able to do 2 sidesteps towards head of bed and take 2 small steps to back up onto bed prior to sitting down. Patient tolerated 4:43 minutes of static standing while holding onto FWW with minimal assist of PT. Balance: Static Sitting: Fair Dynamic Sitting: Fair Static Standing: Fair Dynamic Standing: Fair Special Tests: Mobility Limitations Standardized Measure [facility]-PAC 6 clicks Basic Mobility Inpatient Short Form: Raw Score: 9 CMS Score: 9 Assessment: Patient is a 68 year old male referred to physical therapy services with the diagnosis of sepsis and RVR. Patient presents with clinical signs and symptoms consistent with significant functional decline related to medical issues. Palliative care consult was ordered by Dr. francisco Abreu on 10/20/2018 as well as an abdominal ultrasound with findings of multiple hepatic masses suspected to have metastasized from an unknown organ origin. Patient will go home under hospice care through [facility] today. Goals: Goals X1 week 1. Supine-Sit independent not met 2. Sit-Supine independent not met 3. Sit-Stand independent not met 4. Stand-Sit independent not met 5. Bed-Chair independent not met 6. Chair-Bed independent not met 7. Gait Supervision not met 8. Stairs Supervision not met 9. Independent with home exercise program not met 10. Balance Good not met DISCHARGE RECOMMENDATIONS: Return to home with with needed equipment: hospital bed, bedside commode, and FWW under hospice care through [facility]. May benefit from hospice PT and OT services in order to ensure caregiver education training on mobility performance, home safety evaluation, and fall reduction. Thank you for this referral. Jeanine Bradley, PT, DPT, CLT [facility] DISCLAIMER: This document was created using [employer] Voice Recognition software. It was reviewed for major content. However, there may be multiple small discrepancies and errors due to the voice recognition aspects of the software.
== END 2018-10-20 18:30 | disposition home or self-care (01) | DRG 871 ==
LOC: ER 10-18 00:45 → ICU 10-18 01:33
PROVIDERS: Admitting Provider General Practice; Emergency Provider Emergency Medicine; PCP Nurse Practitioner Family; Visit Provider Internal Medicine
DX: A40.8 Other streptococcal sepsis (principal); I50.43 Acute on chronic combined systolic (congestive) and diastolic (congestive) heart failure; J18.1 Lobar pneumonia, unspecified organism; J96.01 Acute respiratory failure with hypoxia; L03.116 Cellulitis of left lower limb; N17.9 Acute kidney failure, unspecified; I42.9 Cardiomyopathy, unspecified; C78.7 Secondary malignant neoplasm of liver and intrahepatic bile duct; N49.2 Inflammatory disorders of scrotum; I11.0 Hypertensive heart disease with heart failure; I48.91 Unspecified atrial fibrillation; R63.4 Abnormal weight loss; I27.20 Pulmonary hypertension, unspecified; L89.152 Pressure ulcer of sacral region, stage 2; R26.2 Difficulty in walking, not elsewhere classified; F10.10 Alcohol abuse, uncomplicated; R52 Pain, unspecified; Z51.5 Encounter for palliative care; E11.9 Type 2 diabetes mellitus without complications; R13.11 Dysphagia, oral phase; G47.33 Obstructive sleep apnea (adult) (pediatric); R62.7 Adult failure to thrive
CPT/HCPCS: 36410; 36415; 80048; 80053; 80061; 82550; 82805; 83721; 85027; 87040; 87077; 87449; 92610; 93005; 96365; 96367; 96368; 96375; 97163; 97167; 97530; 99222; 99233; 99239; 99255; 99291; 99292; 36600; 71045; 76700; 80162; 80202; 81003; 81015; 82378; 82607; 82746; 83036; 83605; 83735; 83880; 84075; 84153; 84443; 84450; 84460; 84484; 85025; 85610; 85730; 86140; 86301; 87450; 92507; 93010; 93970; J0456; J1940; J1941; J3370; J3490